=== PATIENT | female | born 1965 | race Caucasian/White ===

== ENCOUNTER 2020-02-27 13:07 | Outpatient (CLI) | payer OTHER, SELFPAY ==
--- NOTE | ~2020-02-27 | XR_ITS ---
EXAMINATION: XR lumbar spine min 4V EXAM DATE: 02/27/2020 13:43 INDICATION: M19.90 - Unspecified osteoarthritis, unspecified site TECHNIQUE: Lumber spine frontal, lateral, bilateral oblique projections. Coned down frontal and lat eral L5-S1 lumbar projections for interpretation. There is no prior study for comparison. FINDINGS: There is no spondylolysis. Mild lumbar facet arthropathy and diffuse disc disease. Mild abd ominal aortic arterial sclerosis. Sacrum, sacroiliac joints, sacral arcuate lines are intact. Paraspi nal soft tissue is unremarkable. IMPRESSION: 1. Mild lumbar spondylosis. Reviewed, dictated and finalized at location B. ANALYST IMPRESSION: 1. Mild lumbar spondylosis.
--- NOTE | ~2020-02-27 | XR_ITS ---
EXAMINATION: XR hip BI 2V w AP pelvis EXAM DATE: 02/27/2020 13:43 INDICATION: M19.90 - Unspecified osteoarthritis, unspecified site. TECHNIQUE: Each hip imaged independently (separate right and also left hip) 'frog leg' and frontal p rojections for interpretation. Frontal projection pelvis. There is no prior study for comparison. FINDINGS: No radiographic evidence of hip avascular necrosis. There is mild symmetric bilateral hip primary osteoarthritis. There are no acute fractures or dislocations identified. There is no subcuta neous gas. The soft tissue is unremarkable. There are no radiopaque foreign bodies. IMPRESSION: Mild symmetric bilateral hip osteoarthritis. Reviewed, dictated and finalized at location B. ER SHOP MECHANIC
--- NOTE | ~2020-02-27 | XR_ITS ---
XR hand BI arthritis min 3V 02/27/2020 13:43 Indication: Osteoarthritis. Procedure: 4 views of each hand Comparison: No prior studies for comparison. Findings: No significant joint space narrowing. No erosive changes. No fracture or traumatic malalign ment. Carpal bones are intact bilaterally. No focal soft tissue abnormality. No foreign bodies. Impression: 1: No significant bone or joint abnormality. Reviewed, dictated and finalized at location A. 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
[2020-02-27 14:40] LABS: Basophils Percent Auto 0.4 % (0.2-1.2); Eosinophils Absolute Auto 0.2 K/mm3 (0-0.3); Eosinophils Percent Auto 2.1 % (0-4.4); Hematocrit 44.4 % (37.0-47.0); Hemoglobin 14.9 g/dL (12.0-15.0); Immature Granulocyte Absolute 0.03 K/mm3 (0.00-0.031); Immature Granulocyte Percent A 0.3 % (0-0.5); Lymphocytes Absolute Auto 4.03 K/mm3 (0.9-3.2); Lymphocytes Percent Auto 42.6 % (18.3-44.2); Mean Corpuscular HGB Conc 33.6 g/dl (32-36); Mean Corpuscular Hemoglobin 29.6 pg (26-34); Mean Corpuscular Volume 88.3 fl (80-100); Mean Platelet Volume 9.8 fl (7.4-10.4); Monocytes Absolute Auto 0.5 K/mm3 (0.1-0.6); Monocytes Percent Auto 4.8 % (2.6-8.5); Neutrophils Absolute Auto 4.7 K/mm3 (1.3-6.7); Neutrophils Percent Auto 49.8 % (45.5-73.1); Platelet Count Result 309 k/mm3 (150-375); Red Blood Count 5.03 M/mm3 (4.2-5.4); Red Cell Distribution Width 11.9 % (11.5-14.5); White Blood Count 9.5 K/mm3 (4.5-10.0)
[2020-02-27 15:03] LABS: Alanine Aminotransferase 22 U/L (4-35); Albumin Level 4.5 g/dL (3.5-5.1); Alkaline Phosphatase 75 U/L (38-126); Anion Gap 9 mmol/L (8-16); Aspartate Amino Transferase 32 U/L (14-36); Bilirubin,Total 0.5 mg/dL (0.2-1.3); Blood Urea Nitrogen 10 mg/dL (7-17); CRP 1.3 mg/dL (<1.0); Calcium 10.3 mg/dL (8.4-10.2); Carbon Dioxide 29 mmol/L (22-30); Chloride 102 mmol/L (98-107); Estimated Glomerular Filt Rate > 60; Glucose 94 mg/dL (65-105); Potassium 3.4 mmol/L (3.4-5.0); Sodium 140 mmol/L (137-145)
[2020-02-27 15:12] LABS: Erythrocyte Sedimentation Rate 23 mm/hr (0-20)
[2020-02-27 15:29] LABS: Atypical Lymphocytes Present; Platelet Estimate Adequate (Adequate)
[2020-02-27 17:17] LABS: Vitamin D 25 Hydroxy 32.8 ng/mL
[2020-02-29 13:29] LABS: Thyroid Stimulating Immunoglob <89 % baseline (<140)
[2020-02-29 21:31] LABS: Anti Cyclic Citrullinated Pept <16 Units (<20)
[2020-03-02 04:55] LABS: Thyroid Peroxidase Antibodies <1 IU/mL (<9)
[2020-03-05 11:24] LABS: ANCA Screen Negative
[2020-03-05 11:25] LABS: Myeloperoxidase Ab <1.0
[2020-03-05 11:26] LABS: Proteinase-3 Ab <1.0
[2020-03-06 19:18] LABS: Angiotensin Converting Enzyme 24 U/L (9-67)
== END 2020-02-27 13:08 | disposition home or self-care (01) ==
PROVIDERS: PCP Family Medicine; Visit Provider Internal Medicine
DX: M19.90 Unspecified osteoarthritis, unspecified site (principal); E55.9 Vitamin D deficiency, unspecified; R79.82 Elevated C-reactive protein (CRP); M47.896 Other spondylosis, lumbar region; M16.0 Bilateral primary osteoarthritis of hip
CPT/HCPCS: 36415; 72110; 73130; 73521; 80053; 82164; 82306; 84445; 85025; 85652; 86021; 86140; 86200; 86376; 86671

== ENCOUNTER 2020-06-24 09:20 | Outpatient (CLI) | payer OTHER, SELFPAY ==
--- NOTE | ~2020-06-24 | XR_ITS ---
XR shoulder RT min 2V DATE: 06/24/2020 09:38 INDICATION: Right shoulder pain TECHNIQUE: 4 views COMPARISON: None FINDINGS: No fracture or dislocation. Normal alignment at the acromioclavicular and glenohumeral join ts. No periosteal reaction or bone destruction. No abnormal soft tissue calcification. IMPRESSION: Negative right shoulder Reviewed, dictated and finalized at location A. IMPRESSION: Negative right shoulder
--- NOTE | ~2020-06-24 | XR_ITS ---
XR shoulder LT min 2V DATE: 06/24/2020 09:38 INDICATION: Left shoulder pain TECHNIQUE: 4 views COMPARISON: 08/18/2017 left shoulder FINDINGS: No fracture or dislocation, periosteal reaction or bone destruction or abnormal left should er calcification. Normal alignment at the acromioclavicular and glenohumeral joints. IMPRESSION: No significant abnormality Reviewed, dictated and finalized at location A. IMPRESSION: No significant abnormality
[2020-06-24 10:37] LABS: Erythrocyte Sedimentation Rate 24 mm/hr (0-20)
[2020-06-24 10:49] LABS: Alanine Aminotransferase 24 U/L (4-35); Albumin Level 4.5 g/dL (3.5-5.1); Alkaline Phosphatase 64 U/L (38-126); Anion Gap 6 mmol/L (8-16); Aspartate Amino Transferase 32 U/L (14-36); Bilirubin,Total 0.3 mg/dL (0.2-1.3); Blood Urea Nitrogen 12 mg/dL (7-17); CRP 1.3 mg/dL (<1.0); Calcium 10.5 mg/dL (8.4-10.2); Carbon Dioxide 30 mmol/L (22-30); Chloride 102 mmol/L (98-107); Estimated Glomerular Filt Rate > 60; Glucose 116 mg/dL (65-105); Potassium 3.5 mmol/L (3.4-5.0); Sodium 138 mmol/L (137-145); Uric Acid 6.7 mg/dL (2.5-7.5)
[2020-06-24 10:52] LABS: Parathyroid Intact 12.5 pg/mL (7.5-53.5)
== END 2020-06-24 09:21 | disposition home or self-care (01) ==
LOC: ANHIMG 09:22
PROVIDERS: PCP Family Medicine; Visit Provider Internal Medicine
DX: E55.9 Vitamin D deficiency, unspecified (principal); R79.82 Elevated C-reactive protein (CRP); M19.011 Primary osteoarthritis, right shoulder; M19.012 Primary osteoarthritis, left shoulder
CPT/HCPCS: 36415; 73030; 80053; 83970; 84550; 85652; 86140

== ENCOUNTER 2020-07-09 08:38 | Outpatient (CLI) | payer OTHER, SELFPAY ==
--- NOTE | ~2020-07-09 | MR_ITS ---
EXAMINATION: MR lumbar spine wo con DATE: 07/09/2020 09:16 INDICATION: Lumbar spondylosis. Low back pain and bilateral leg pain. TECHNIQUE: Magnetic resonance imaging (MRI) of the lumbar spine was performed without intravenous con trast. Sequences included sagittal T2-weighted FSE, sagittal T2-weighted FS FSE, sagittal T1-weighted FSE, and axial T2-weighted FSE. COMPARISON: None FINDINGS: Alignment is normal. Vertebral body heights are normal. Normal marrow signal. Disc heights are mara l. The conus medullaris terminates at L1-L2. There is normal signal in the caudal spinal cord. Parave rtebral soft tissues are unremarkable. The following disc levels are specifically discussed: T12-L1: The disc does not extend beyond the endplate margin. There is mild bilateral facet joint oste oarthritis. There is no neural foraminal stenosis. There is no central canal stenosis. L1-L2: The disc does not extend beyond the endplate margin. There is mild bilateral facet joint osteo arthritis. There is no neural foraminal stenosis. There is no central canal stenosis. L2-L3: The disc does not extend beyond the endplate margin. There is mild bilateral facet joint osteo arthritis. There is no neural foraminal stenosis. There is no central canal stenosis. L3-L4: The disc does not extend beyond the endplate margin. There is mild bilateral facet joint osteo arthritis. There is mild bilateral neural foraminal stenosis. There is no central canal stenosis. L4-L5: The disc does not extend beyond the endplate margin. There is moderate bilateral facet joint o steoarthritis. There is mild bilateral neural foraminal stenosis. There is no central canal stenosis. L5-S1: The disc does not extend beyond the endplate margin. There is moderate bilateral facet joint o steoarthritis. There is mild bilateral neural foraminal stenosis. There is no central canal stenosis. IMPRESSION: 1. Mild to moderate lower lumbar predominant facet osteoarthritis. Reviewed, dictated and finalized at location A.
== END 2020-07-09 08:39 ==
LOC: MICIMG 08:39
PROVIDERS: PCP Family Medicine; Visit Provider Internal Medicine
DX: M47.817 Spondylosis without myelopathy or radiculopathy, lumbosacral region (principal); M48.07 Spinal stenosis, lumbosacral region; M47.815 Spondylosis without myelopathy or radiculopathy, thoracolumbar region; M48.05 Spinal stenosis, thoracolumbar region
CPT/HCPCS: 72148

== ENCOUNTER 2020-09-26 15:32 | Emergency (ER) | payer OTHER, SELFPAY ==
--- NOTE | ~2020-09-26 | CT_ITS ---
EXAMINATION: CT abdomen pelvis wo con DATE: 09/26/2020 16:53 INDICATION: Generalized abdominal pain. Recent iliac stents. TECHNIQUE: Computed tomography (CT) of the abdomen and pelvis was performed without intravenous contr ast. Automated exposure control and iterative reconstruction technique were employed. Exam dose: 106 2.22 mGy-cm total exam DLP. COMPARISON: None. FINDINGS: Left lower lobe calcified pulmonary granuloma. No consolidation at the lung bases. Normal heart size. No pericardial or pleural effusion. The gallbladder is contracted. No hepatic, splenic, pancreatic, and adrenal or right renal space-occu pying mass lesion is evident. There is an indeterminate exophytic approximately 2.3 cm mass of the upper pole of the left kidney wi th attenuation of approximately 16 Hounsfield units, possibly a cyst. Further CT evaluation with IV c ontrast material or MR kidney examination is suggested. No urinary tract calculus or hydroureteronephrosis. The uterus, adnexal areas and urinary bladder are unremarkable. There is atherosclerotic calcification of the abdominal aorta. Bilateral iliac artery stents. No abdo lisa aortic aneurysm. No intraperitoneal or retroperitoneal or pelvic mass lesion or adenopathy or ascites. Normal appendix. No bowel obstruction, bowel wall thickening, pneumatosis or intraperitoneal free air . Small fat-containing umbilical hernia. Included skeletal structures are unremarkable. IMPRESSION: 2.3 cm hypoattenuating lesion in the upper pole left kidney; cyst versus hypodense solid mass lesion. Consider further evaluation with CT examination with IV contrast material or MRI examin ation of the kidneys. Bilateral iliac artery stents Reviewed, dictated and finalized at Location A. Reviewed, dictated and finalized at location A. IMPRESSION: 2.3 cm hypoattenuating lesion in the upper pole left kidney; cyst versus hypodense solid mass lesion. Consider further evaluation with CT examina tion with IV contrast material or MRI examination of the kidneys. Bilateral iliac artery stents
[2020-09-26 15:46] VITALS: BP 124/94; PULSE 94; RESP 20; TEMP 37; O2SAT 96
[2020-09-26 16:02] LABS: Basophils Percent Auto 0.3 % (0.2-1.2); Eosinophils Absolute Auto 0.2 K/mm3 (0-0.3); Eosinophils Percent Auto 1.8 % (0-4.4); Hematocrit 43.4 % (37.0-47.0); Hemoglobin 14.6 g/dL (12.0-15.0); Immature Granulocyte Absolute 0.04 K/mm3 (0.00-0.031); Immature Granulocyte Percent A 0.4 % (0-0.5); Lymphocytes Absolute Auto 4.81 K/mm3 (0.9-3.2); Lymphocytes Percent Auto 43.7 % (18.3-44.2); Mean Corpuscular HGB Conc 33.6 g/dl (32-36); Mean Corpuscular Hemoglobin 29.9 pg (26-34); Mean Corpuscular Volume 88.8 fl (80-100); Mean Platelet Volume 9.5 fl (7.4-10.4); Monocytes Absolute Auto 0.6 K/mm3 (0.1-0.6); Monocytes Percent Auto 5.4 % (2.6-8.5); Neutrophils Absolute Auto 5.3 K/mm3 (1.3-6.7); Neutrophils Percent Auto 48.4 % (45.5-73.1); Platelet Count Result 325 k/mm3 (150-375); Red Blood Count 4.89 M/mm3 (4.2-5.4)
[2020-09-26 16:14] LABS: Alanine Aminotransferase 23 U/L (4-35); Albumin Level 4.4 g/dL (3.5-5.1); Alkaline Phosphatase 71 U/L (38-126); Anion Gap 11 mmol/L (8-16); Aspartate Amino Transferase 35 U/L (14-36); Bilirubin,Total 0.4 mg/dL (0.2-1.3); Blood Urea Nitrogen 10 mg/dL (7-17); Calcium 9.6 mg/dL (8.4-10.2); Carbon Dioxide 26 mmol/L (22-30); Chloride 103 mmol/L (98-107); Estimated CRCL calculation 79 ml/min; Estimated Glomerular Filt Rate > 60; Glucose 120 mg/dL (65-110); Lipase 207 U/L (23-300); Potassium 3.4 mmol/L (3.4-5.0); Sodium 140 mmol/L (137-145)
[2020-09-26 16:29] LABS: Add Urine Microscopic? NO; Appearance Urine Clear (Clear); Bilirubin Urine Negative (Negative); Blood Urine Negative (Negative); Color Urine Yellow (Yellow); Glucose Urine UA Negative (Negative); Ketones Urine Negative (Negative); Leukocyte Esterase Ur Negative LEU/UL (Negative); Nitrate Urine Negative (Negative); Protein Urine Negative (Negative); Specific Grav Ur 1.009 (1.001-1.035); Urobilinogen Urine Negative mg/dL (<2.0)
--- NOTE | 2020-09-26 16:34 | ED.ABDPAIN ---
HPI - Abdominal Pain General Chief Complaint: Abdominal Pain Stated Complaint: abd pain Time Seen by Provider: 09/26/20 15:41 Source: patient Mode of arrival: ambulatory Limitations: no limitations History of Present Illness HPI narrative: 55-year-old female Pains of diffuse abdominal discomfort which is been getting worse for several days No vomiting diarrhea or constipation No urinary symptoms No fever Cannot say anything which particularly makes it better or worse About a month ago in [facility] she had bilateral arterial stents placed She was placed on Plavix after that and also was taking turmeric as a supplement She discussed her symptoms with somebody in the vascular office and was advised to discontinue the turmeric No NSAIDs, she does not drink, she does smoke half pack a day Related Data Home Medications Medication Instructions Recorded Confirmed cetirizine 10 mg tablet 10 mg PO DAILY 01/10/20 01/16/20 hydrochlorothiazide 25 mg tablet 25 mg PO DAILY 01/10/20 01/16/20 cyanocobalamin (vitamin B-12) 1,000 mcg PO DAILY 01/16/20 01/16/20 1,000 mcg capsule clopidogrel 09/26/20 Allergies Allergy/AdvReac Type Severity Reaction Status Date / Time No Known Allergies Allergy Verified 09/26/20 15:50 Review of Systems Review of Systems: All systems reviewed & are unremarkable except as noted in HPI and below Constitutional: Constitutional: Reports no additional constitutional complaints, Denies chills, Denies fever(s) and Denies headache(s) Eyes: Eyes: Reports no additional eye complaints and Denies change in vision ENT: Denies headache(s) and Denies sore throat Cardiovascular: Cardiovascular: Denies chest pain and Denies dyspnea Respiratory: Respiratory: Denies cough and Denies dyspnea Gastrointestinal: Gastrointestinal: Reports abdominal pain, Denies bloating, Denies diarrhea and Denies vomiting Genitourinary: Genitourinary: Denies urinary frequency and Denies dysuria Musculoskeletal: Musculoskeletal: Denies deformity, Denies arthralgias, Denies joint swelling and Denies numbness Integumentary/Breasts: Skin/Breast: Denies rash and Denies wounds Neurologic: Denies headache(s), Denies focal weakness and Denies numbness Psychiatric: Psychiatric: Reports no additional psychiatric complaints Endocrine: Endocrine: Reports no additional endocrine complaints Hematologic/Lymphatic: Hematologic/Lymphatic: Reports no additional hematologic/lymphatic complaints Allergic/Immunologic: Allergic/Immunologic: Reports no additional allergic/immunologic complaints [facility] Past Medical History Medical History (Updated 09/26/20 @ 17:47 by Lexx Rodríguez MD) Claudication of calf muscles CRP elevated Degenerative joint disease (DJD) of lumbar spine Inflammatory arthritis Left leg claudication Vitamin D deficiency Surgical History Surgical History History of carpal tunnel surgery Family History Family History Mother Heart disease Father Heart disease Cancer Sibling Rheumatoid arthritis Sibling Heart disease Social History Social History Smoking packs per day: 0.75 Smoking cigarettes per day: 15.0 Years smoked: 25 Smoking pack-years: 18.75 Smoking status: Current every day smoker Tobacco type: cigarettes Alcohol intake: never Substance use: never Substance use type: does not use Gender identity (if verbalized by the patient): Female Exam Const: General: cooperative and no acute distress Orientation/consciousness: patient oriented x3 (alert) HENMT: Head: normal to inspection, normocephalic and atraumatic Ears: external ears normal General nose exam: no epistaxis Eyes: Conjunctivae: conjunctivae normal EOM: EOMs intact bilaterally Neck: Neck: normal visual inspection, supple and no JVD
[2020-09-26 17:23] VITALS: BP 128/66; PULSE 78; RESP 18; O2SAT 99
[2020-09-26 18:02] VITALS: BP 130/75; PULSE 78; RESP 18; O2SAT 99
== END 2020-09-26 18:05 | disposition home or self-care (01) ==
PROVIDERS: Emergency Provider Emergency Medicine; PCP Family Medicine
DX: R10.9 Unspecified abdominal pain (principal); N28.1 Cyst of kidney, acquired; Z95.5 Presence of coronary angioplasty implant and graft; M19.90 Unspecified osteoarthritis, unspecified site; E55.9 Vitamin D deficiency, unspecified; M47.816 Spondylosis without myelopathy or radiculopathy, lumbar region; Z79.02 Long term (current) use of antithrombotics/antiplatelets; F17.210 Nicotine dependence, cigarettes, uncomplicated
CPT/HCPCS: 36415; 74176; 80053; 81003; 83690; 85025; 99284

== ENCOUNTER 2020-10-02 12:54 | Outpatient (CLI) | payer OTHER, SELFPAY ==
--- NOTE | ~2020-10-02 | MR_ITS ---
EXAMINATION: MR renal wo/w con DATE: 10/02/2020 13:51 INDICATION: Abnormal left renal lesion on prior CT. Generalized abdominal pain. TECHNIQUE: Magnetic resonance imaging (MRI) of the abdomen was performed without and with 18 mL Multi chip intravenous contrast. Sequences included coronal T2-weighted SS-FSE, coronal and axial FS 2D-F IESTA, axial STIR FSE, axial T2-weighted SS-FSE, axial T2-weighted FS SS-FSE, axial diffusion-weighte d SE, axial dual-echo T1-weighted FSPGR, and axial and coronal T1-weighted LAVA. Postcontrast axial T 1-weighted LAVA images were obtained in a time course. Postcontrast coronal T1-weighted LAVA images w ere obtained. COMPARISON: CT dated 09/26/2020 FINDINGS: Heart size is normal. No pericardial or pleural effusion. Liver, gallbladder, spleen, pancreas, right kidney and bilateral adrenal glands are normal. No intra or extrahepatic biliary ductal dilation. 2. 5 cm likely hemorrhagic cyst at the upper pole of the left kidney with T1 hyperintense, T2 hypointens e posteriorly layering hematocrit level. The bowels including the appendix are normal. Bladder and ut erus are unremarkable. No free intraperitoneal fluid. No pathologically enlarged abdominal or pelvic lymphadenopathy. Normal bone marrow signal throughout. IMPRESSION: 1. Left renal lesion of concern corresponds to a 2.5 cm hemorrhagic cyst with dependently layering he matocrit level. 2. No acute intra-abdominal/pelvic process. Reviewed, dictated and finalized at location A. IMPRESSION: 1. Left renal lesion of concern corresponds to a 2.5 cm hemorrhagic cyst with d ependently layering hematocrit level. 2. No acute intra-abdominal/pelvic process.
[2020-10-02 13:25] LABS: Estimated Glomerular Filt Rate > 60
== END 2020-10-02 12:55 ==
PROVIDERS: PCP Family Medicine; Visit Provider Nurse Practitioner Family
DX: R93.422 Abnormal radiologic findings on diagnostic imaging of left kidney (principal)
CPT/HCPCS: 74183; A9577

== ENCOUNTER 2021-01-08 08:14 | Outpatient (CLI) | payer OTHER, SELFPAY ==
--- NOTE | ~2021-01-08 | NM_ITS ---
EXAMINATION: NM hepatobiliary wo pharm DATE: 01/08/2021 11:05 INDICATION: Abdominal pain. Gastritis. Abnormal CT . COMPARISON: None. TECHNIQUE: 4.6 mCi Tc-99m mebrofenin (Choletec) was administered intravenously. Scintigraphic images of the abdomen were obtained for one hour. At the 1 hour time point, the patient drank 8 oz Ensure, and imaging was continued for 60 minutes. Gallbladder ejection fraction was calculated by the technol ogist. FINDINGS: There is normal clearance of radiotracer from the blood pool. There is homogeneous tracer u ptake by the liver. Activity progresses to the bowel and gallbladder. The gallbladder ejection fract ion (GBEF) is 78%. Note that with this technique, normal GBEF >= 33%. IMPRESSION: 1. Normal hepatobiliary scan Reviewed, dictated and finalized at location A.
== END 2021-01-08 08:15 | disposition home or self-care (01) ==
LOC: ANHIMG 08:18
PROVIDERS: PCP Family Medicine; Visit Provider Internal Medicine Gastroenterology
DX: R10.84 Generalized abdominal pain (principal); K29.30 Chronic superficial gastritis without bleeding
CPT/HCPCS: 78226; A9537

== ENCOUNTER 2022-05-25 08:51 | Outpatient (CLI) | payer OTHER, SELFPAY ==
--- NOTE | ~2022-05-25 | CT_ITS ---
EXAMINATION: CTA abd aorta runoff DATE: 05/25/2022 09:47 INDICATION: Peripheral vascular disease TECHNIQUE: Computed tomographic angiography (CTA) of the abdomen, pelvis, and both lower extremities was performed with 150 mL Omnipaque-350 intravenous contrast. The dose-length product (DLP) was 1727. 73 mGy-cm. Maximum intensity projection 3D-reconstructions of the arteries were created by the techno logist on a separate workstation. Automated exposure control and iterative reconstruction technique w ere employed. COMPARISON: 09/26/2020 FINDINGS: ABDOMINAL AORTA AND ITS BRANCHES: No aneurysm or dissection of the abdominal aorta. There is calcified atherosclerosis of the abdominal aorta with mild stenosis of the distal abdominal aorta. The celiac axis, superior mesenteric artery, and inferior mesenteric artery are normal at their origins. There are two left and one right renal a rteries. Endovascular stents are present in the proximal common iliac arteries. PELVIC VASCULATURE: The distal common iliac arteries and external iliac arteries are unremarkable. There is calcified ath erosclerosis with areas of stenosis in the left internal iliac artery. RIGHT LOWER EXTREMITY VASCULATURE: Unremarkable with three-vessel runoff at the ankle. LEFT LOWER EXTREMITY VASCULATURE: Unremarkable with three-vessel runoff at the ankle. ADDITIONAL FINDINGS: A calcified nodule of the left lower lobe is consistent with old granulomatous disease. The liver is diffusely low in attenuation when compared with the spleen, consistent with hepatic steatosis. There is a hemangioma of the right hepatic lobe. Punctate calcifications in an otherwise normal spleen like ly represent healed granulomatous disease. The pancreas, gallbladder, and adrenal glands are normal. Cysts of the kidneys measure up to 2.5 cm on the right. No pathologically enlarged abdominal or pelvi c lymph nodes are identified. No free intraperitoneal gas or evidence of bowel obstruction. The appen brinda is normal. There is formed stool in the nondistended distal small bowel, suggestive of slow trans it. IMPRESSION: 1. Calcified atherosclerosis with mild stenosis of the distal abdominal aorta and areas of stenosis o f the left internal iliac artery, otherwise unremarkable examination. Reviewed, dictated and finalized at location L. IMPRESSION: 1. Calcified atherosclerosis with mild stenosis of the distal abdominal aorta a nd areas of stenosis of the left internal iliac artery, otherwise unremarkable examination.
[2022-05-25 09:27] LABS: Estimated Glomerular Filt Rate > 60
== END 2022-05-25 08:52 | disposition home or self-care (01) ==
PROVIDERS: PCP Family Medicine; Visit Provider Surgery Vascular Surgery
DX: I73.9 Peripheral vascular disease, unspecified (principal); I77.1 Stricture of artery
CPT/HCPCS: 75635; Q9967

== ENCOUNTER → 2022-07-15 11:01 | Outpatient (CLI) | payer OTHER, SELFPAY ==
--- NOTE | ~2022-07-15 | MR_ITS ---
EXAMINATION: MR cervical spine wo con DATE: 07/15/2022 11:41 INDICATION: Cervical radiculopathy TECHNIQUE: Magnetic resonance imaging (MRI) of the cervical spine was performed without intravenous c ontrast. Sequences included sagittal T2-weighted FSE, sagittal T2-weighted FS FSE, sagittal T1-weight ed FSE, sagittal fluid sensitive FSE STIR, axial MERGE and axial T2-weighted FSE. COMPARISON: Cervical spine radiographs dated 07/13/2022 FINDINGS: Bone alignment is normal. Vertebral body heights are normal. Mild disc height loss at C6-C7 with ass ociated mild fibrovascular degenerative endplate changes at both sides of the disc space. Marrow sign al is otherwise normal. Cord signal intensity is normal. Cervical soft tissues are unremarkable. The following disc levels are specifically discussed: C2-C3: The disc does not extend beyond the endplate margin. There is no uncovertebral joint osteoarth ritis. There is mild bilateral facet joint osteoarthritis. There is no neural foraminal stenosis. The re is no central canal stenosis. C3-C4: Disc is mildly bulging. There is mild left and moderate right uncovertebral joint osteoarthrit is. There is moderate to severe left and severe right facet joint osteoarthritis. There is mild left and mild to moderate right neural foraminal stenosis. There is mild central canal stenosis. C4-C5: The disc does not extend beyond the endplate margin. There is mild bilateral uncovertebral ann-marie nt osteoarthritis. There is moderate to severe bilateral facet joint osteoarthritis. There is mild le ft neural foraminal stenosis. There is no central canal stenosis. C5-C6: Disc is bulging. There is mild bilateral uncovertebral joint osteoarthritis. There is mild lef t and moderate right facet joint osteoarthritis. There is mild right neural foraminal stenosis. There is mild central canal stenosis. C6-C7: Disc is bulging. There is moderate right and mild left uncovertebral joint osteoarthritis. The re is mild bilateral facet joint osteoarthritis. There is mild right neural foraminal stenosis. There is mild central canal stenosis. C7-T1: Disc is minimally bulging. There is mild bilateral uncovertebral joint osteoarthritis. There i s mild to moderate bilateral facet joint osteoarthritis. There is no neural foraminal stenosis. There is no central canal stenosis. IMPRESSION: 1. Mild cervical spondylosis. Reviewed, dictated and finalized at location A.
== END ==
PROVIDERS: PCP Family Medicine; Visit Provider Orthopaedic Surgery
DX: M47.22 Other spondylosis with radiculopathy, cervical region (principal)
CPT/HCPCS: 72141

== ENCOUNTER → 2023-01-06 15:08 | Outpatient (CLI) | payer OTHER, SELFPAY ==
--- NOTE | ~2023-01-06 | MR_ITS ---
EXAMINATION: MR lumbar spine wo con DATE: 01/06/2023 15:50 INDICATION: Lumbar spondylosis with chronic worsening low back pain radiating down both legs TECHNIQUE: Magnetic resonance imaging (MRI) of the lumbar spine was performed without intravenous con trast. Sequences included sagittal T2-weighted FSE, sagittal T2-weighted FS FSE, sagittal T1-weighted FSE, and axial T2-weighted FSE. COMPARISON: None FINDINGS: Alignment is normal. Vertebral body heights are normal. Small Schmorl's node along the inferior endpl ate of L1. Normal marrow signal. Disc heights are normal. Mild disc desiccation without significant d isc height loss at L4-L5. The conus medullaris terminates at L1-L2. There is normal signal in the cau marilou spinal cord. Peroneal cyst on the left at T11-T12. Paravertebral soft tissues are unremarkable. T he following disc levels are specifically discussed: T12-L1: Minimal bilateral paracentral disc protrusions. There is mild bilateral facet joint osteoarth ritis. There is no neural foraminal stenosis. There is no central canal stenosis. L1-L2: The disc does not extend beyond the endplate margin. There is mild bilateral facet joint osteo arthritis. There is no neural foraminal stenosis. There is no central canal stenosis. L2-L3: Mild left foraminal zone disc protrusion. There is mild bilateral facet joint osteoarthritis. There is mild left neural foraminal stenosis. There is no central canal stenosis. L3-L4: Bilateral foraminal zone disc protrusions, mild on the left and minimal on the right There is mild bilateral facet joint osteoarthritis. There is mild bilateral neural foraminal stenosis. There i s no central canal stenosis. L4-L5: Disc is mildly bulging with left foraminal zone annular fissure. There is moderate bilateral f acet joint osteoarthritis. There is mild bilateral neural foraminal stenosis. There is no central can al stenosis. L5-S1: Disc is minimally bulging. There is moderate bilateral facet joint osteoarthritis. There is mi ld left and mild to moderate right neural foraminal stenosis. There is no central canal stenosis. IMPRESSION: 1. Minimal progression of minimal lumbar spondylosis with mild to moderate lower lumbar predominant f acet osteoarthritis. Reviewed, dictated and finalized at location A. IMPRESSION: 1. Minimal progression of minimal lumbar spondylosis with mild to moderate lowe r lumbar predominant facet osteoarthritis.
== END ==
PROVIDERS: PCP Family Medicine; Visit Provider Family Medicine
DX: M43.06 Spondylolysis, lumbar region (principal); M46.96 Unspecified inflammatory spondylopathy, lumbar region; M47.896 Other spondylosis, lumbar region
CPT/HCPCS: 72148

== ENCOUNTER 2023-12-27 13:05 | Outpatient (CLI) | payer OTHER, SELFPAY ==
--- NOTE | ~2023-12-27 | XR_ITS ---
3 VIEWS LUMBAR SPINE Ordering provider: Alexa Britton MD History: . LUMBAR SPONDYLOSIS . Comparison: None. FINDINGS: VERTEBRAL BODIES: No visible fracture or subluxation. DISK SPACES: Normal. SOFT TISSUES: Normal. Vascular calcifications. IMPRESSION: No acute osseous abnormality lumbar spine. Reviewed, dictated and finalized at location A.
== END 2023-12-27 13:06 | disposition home or self-care (01) ==
PROVIDERS: PCP Family Medicine; Visit Provider Neurological Surgery
DX: M47.816 Spondylosis without myelopathy or radiculopathy, lumbar region (principal)
CPT/HCPCS: 72110

== ENCOUNTER 2024-12-13 12:00 | Outpatient (CLI) | payer OTHER, SELFPAY ==
[2024-12-13 19:20] LABS: Alanine Aminotransferase 23 U/L (6-35); Albumin Level 4.2 g/dL (3.5-5.1); Alkaline Phosphatase 87 U/L (38-126); Anion Gap 7 mmol/L (4-12); Aspartate Amino Transferase 61 U/L (14-36); Bilirubin,Total 0.9 mg/dL (0.2-1.3); Blood Urea Nitrogen 9 mg/dL (7-17); Calcium 9.4 mg/dL (8.4-10.2); Carbon Dioxide 30 mmol/L (22-30); Chloride 101 mmol/L (98-107); Estimated Glomerular Filt Rate > 60; Glucose 151 mg/dL (65-110); Potassium 3.9 mmol/L (3.4-5.0); Sodium 138 mmol/L (137-145); Total Protein 7.8 g/dL (6.3-8.2)
[2024-12-13 19:23] LABS: Hemoglobin A1C 6.1 % (<5.7)
== END 2024-12-13 12:01 | disposition home or self-care (01) ==
LOC: ANHASCIMG 12:00 → ANHBWCLAB 12:01
PROVIDERS: PCP Nurse Practitioner Adult Health; Visit Provider Nurse Practitioner Adult Health
DX: R73.9 Hyperglycemia, unspecified (principal)
CPT/HCPCS: 36415; 80053; 83036

== ENCOUNTER 2025-01-12 15:03 | Outpatient (CLI) | payer OTHER, SELFPAY ==
--- OUTSIDE RECORDS SUMMARY | 2008-06-20 02:30 | XMS_ITS | Continuity of Care Document ---
Author Organization [facility] Address [address] [place] [address] utive [facility] [address] [place] [address] Phone Care Team Providers Care Superintendent Maintenance Name Role Phone Jorgensen OD, Lexx Unavailable Unavailable Procedures Procedure Date Eye Exam, New Patient Refraction Advance Directives Directive Yes / No Effective Date File Name No Information Encounters Encounter Description Practice Location Reason(s) For Visit Diagnoses Date Provider Providers Copied on Encounter [facility], [address] [place] [address] [address], [place], [place], [id number], [place] tel:[phone] [facility] No Information [phone] Jorgensen OD [facility]. [address] , [address], [place], [address], [place]. tel:[phone] Family History Family Member Type Diagnosis Age At Onset No Information Payers Payer name Insurance type Covered republican ID Authoriza tion(s) [employer] [place] [id number] Social History Type Description Quantity Date Captured Comments Sex Female Smoking Status No Information Chief Complaint And Reason For Visit No Information Reason For Referral Reason For Referral No Information History Of Present Illness Encounter Date Complaint History Of Prese nt Illness No Information Functional Status Date Functional Assessmen t No Information Instructions Date Instruction Additional Infor mation No Information Assessments Type Assessment Date No Information Patient Care Teams Name Effective Dates (start - stop) Status Members No Information
--- OUTSIDE RECORDS SUMMARY | 2019-05-12 05:21 | XMS_ITS | Continuity of Care Document ---
Author Organization [facility] Address [address] [facility] [address] [place] [address] Phone Care Team Providers Care History Teacher Name Role Phone Aquiles Delgadillo MD Unavailable Unavailable Allergies, Adverse Reactions, Alerts Substance Reaction Status Criticality No Known Allergies Active No Inform ation Medications Medication Instructions Dosage Effective Dates (start - stop) Status Comments Mobic 15 mg tablet take 1 tablet by ora l route every day with food 15 MG - Active lisinopril 10 mg tablet take 1 tablet by oral route every day 10 MG - Active Procedures Procedure Date OFFICE/OUTPATIENT VISIT EST OFFICE/OUTPATIENT VISIT NEW Advance Directives Directive Yes / No Effective Date File Name No Information Encounters Encounter Description Practice Location Reason(s) For Visit Diagnoses Date Provider Providers Copied on Encounter [facility] , [address] [facility] [address], [place], [address], [place] tel:[phone] [facility] No Information May- 0 Elie Kwan. [address], [place], [place], [id number] . tel: [phone] OFFICE/OUTPAT IENT VISIT EST [facility] , [address] [facility] [address], [place], [address], [place] tel:[phone] [facility] Achilles tendinitis of left lower extremity May-0 0 Elie Kwan. [address], [place], [place], [id number] . tel: [phone] OFFICE/OUTPAT IENT VISIT NEW [facility] , [address], [place], [address], [place] tel:[phone] [facility] ankle (chief complaint) Achilles tendinitis of left lower extremityBody mass index (BMI) 32.0-32.9, adultElevated blood-pressure reading, w/o diagnosis of htn 0 Susan Marroquin. [address], [place], [place], [id number] . tel: [phone] Referring Provider: Arpita Nogueira [address] [place] [address] , [place], [address] . tel:[phone] Family History Family Member Type Diagnosis Age At Onset Mother Problem (finding) Alive and well Payers Payer name Insurance type Covered republican ID Authorsegundo calles(s) [facility] All Savers Plan OT [id number] Social History Type Description Quantity Date Captured Comments Alcohol Use Details Unknown Caffeine Use Details Unknown Tobacco Use Status Smoking Status No Information Sex Female Chief Complaint And Reason For Visit No Information Reason For Referral Reason For Referral No Information Plan Of Treatment Date Type Action Status Goal Tobacco cessation counseling completed Referral Ordered: Blood Pressure management: Referral to general practitioner. (related to Elevated blood-pressure reading without diagnosis of hypertension) ordered Referral Ordered: RADEX ANKLE COMPL MINIMUM 3 VIEWS LT ordered History Of Present Illness Encounter Date Complaint History Of Prese nt Illness ankle Functional Status Date Functional Assessmen t No Information Instructions Date Instruction Additional Infor mation activity as tolerated Related to Achilles tendinitis of left lower extremity Giving encouragement to exercise Related to Body mass index (BMI) 32.0-32.9, adult Assessments Type Assessment Date No Information Patient Care Teams Name Effective Dates (start - stop) Status Members No Information
--- NOTE | ~2025-01-12 | CT_ITS ---
Exam: CT abdomen and pelvis without contrast Clinical History: [Epigastric pain. ] Comparison: [ CT abdominal aorta runoff] 05/25/2022 Technique: Multiple axial CT images of the abdomen and pelvis were obtained without IV contrast. Sagittal and coronal reformatted images were obtained. FINDINGS: Lung bases: [There is a 3 mm subpleural nodule in the right middle lobe. ] Liver: [ No mass.] [ No intrahepatic biliary duct dilatation.] Gallbladder: [ No wall thickening or stones.] Common bile duct: [ Normal caliber.] [ No stones.] Spleen: [ Within normal limits.] Pancreas: [ No mass. No pancreatic fluid collection.] Adrenals: [ No masses.] Kidneys: [ No masses. No hydronephrosis.][ ] Lymph nodes: [ No adenopathy in the abdomen or pelvis.] Stomach, small bowel and colon: [ No bowel wall thickening or obstruction.] Peritoneum cavity: [ No mesenteric fat stranding or fluid.] Bladder: [ Unremarkable.] Osseous structures: [ No acute fracture or destructive lesion.] [ Multilevel degenerative change in the visualized spine.] Abdominal aorta: [ No aneurysm.] Aorto bicommon iliac stent. Atherosclerotic disease in the abdominal aorta. Additional findings: [ None of significance.] IMPRESSION: 1. No CT evidence for an acute process in the abdomen or pelvis at this time. Reviewed, dictated and finalized at location Q. INE SET UP OPERATOR PAPER GOODS
--- OUTSIDE RECORDS SUMMARY | 2025-01-12 15:09 | XMS_ITS | Encounter Summary ---
Author Organization [facility] Address [address] [place] [address] Care Team Providers Care Tractor Operator Laser Leveling Name Role Phone Arpita Watters MD Primary Care Provider [phone] Encounter Details Date Type Department Care Team (Late st Contact Info) Description 07/02/2020 [facility] [address] Yolanda Green MA Social History Tobacco Use Types Packs/Day Years Used Date Smoking Tobacco: Every Day Cigarettes 0.8 25 Smokeless Tobacco: Never Alcohol Use Standard Drinks/Week Comments Never 0 (1 standard drink = 0.6 oz pur e alcohol) AUDIT-C Answer Date Recorded Q1: How often do you have a drink containing alc ohol? Never 07/01/2020 Average Number of Drinks Not on file 021 Frequency of Binge Drinking Not on file 06/07 Comments Unknown Sex and Gender Information Value Date Recorded Sex Assigned at Not on file Legal Sex Female 8:11 PM CDT Gender Identity Not on file Sexual Orientation Not on file documented as of this encounter Plan of Treatment Not on file documented as of this encounter Procedures Procedure Name Priority Date/Time Associated Diagnosis Comments COMPREHENSIVE METABOLIC PANEL Routine 06/24/2020 C-REACTIVE PROTEIN Routine 06/24/2020 URIC ACID BLOOD Routine 06/24/2020 CBC (OUTSIDE LAB) Routine 02/27/2020 documented in this encounter Results * URIC ACID BLOOD (06/24/2020) URIC ACID 6.7 06/24/2020 [facility] Final Result * C-REACTIVE PROTEIN (06/24/2020) CRP 1.3 06/24/2020 [facility] Final Result * COMPREHENSIVE METABOLIC PANEL (06/24/2020) SODIUM S/P/B 138 POTASSIUM S/P/B 3.5 CO2 30 CHLORIDE S/P/B 102 GLUCOSE 116 mg/dL CALCIUM S/P/B 10.5 BUN 12 CREATININE S/P/B 0.80 0.5 - 1.0 EGFR NON-AFR. AMER. >60 <=90 ALKALINE PHOSPHATASE S/P/B 64 ALT 24 AST 32 BILIRUBIN TOTAL S/P/B 0.3 ALBUMIN S/P/B 4.5 3.5 - 5.0 TOTAL PROTEIN S/P/B 8.0 06/24/2020 [facility] Final Result * CBC (OUTSIDE LAB) (02/27/2020) WBC 9.5 HGB 14.9 HCT 44.4 PLT 309 02/27/2020 [facility] Abstract LAB-OUTSIDE/ABSTRACTED Final Result documented in this encounter Visit Diagnoses Not on filedocumented in this encounter Care Teams Tractor Operator Laser Leveling Relationship Specialty Start Date End Date Arpita Watters MD [address] [place] [address] [place] [phone] PCP - General FAMILY PRACTICE 08/20/20 documented as of this encounter
--- OUTSIDE RECORDS SUMMARY | 2025-01-12 15:09 | XMS_ITS | Clinical Summary ---
Author Organization [facility] [address] [facility] Address [address] [place] [address] Care Team Providers Care Supervisor Kosher Dietary Service Name Role Phone Arpita Watters MD Primary Care Provider + Allergies No known active allergies Medications hydroCHLOROthiaz philip 25 mg tablet Take 25 mg by mouth daily. Active buPROPion HCL (WELLBUTRIN XL) 150 mg Extended Release 24 hour tablet Take 150 mg by mouth daily in the morning. 03/16/2022 Active gabapentin (NEURONTIN) 300 mg capsule Take 300 mg by mouth 2 times daily. 07/26/2020 Active rivaroxaban (Xarelto) 2.5 mg Tablet Take 1 Tablet (2.5 mg) by mouth 2 times daily. 190 Tablet 3 01/21/2024 Active atorvastatin (LIPITOR) 40 mg tablet TAKE 1 TABLET BY MOUTH EVERY DAY 90 Tablet 3 11/20/2024 Active Active Problems No known active problems Encounters Date Type Department Care Team Description 01/03/2025 External Device Data [facility] ABSTRACTION Provider, Abstract 01/03/2025 External Device Data [facility] ABSTRACTION Provider, Abstract 11/18/2024 Refill [facility] Heart and Vascular Surgery [address] [facility] [address] [address] [facility] [address] [place] [address] Davida Lentz MD from Last 3 Months Family History Medical History Relation Name Comments Heart Disease Father Hypertension Father Diabetes Mother Heart Disease Mother Blood Disorder Sister Relation Name Status Comments Father Mother Sister Social History Tobacco Use Types Packs/Day Years Used Date Smoking Tobacco: Former Cigarettes Q uit: 05/07/2022 Smokeless Tobacco: Never Tobacco Cessation:Counseling Given: Not Answered Alcohol Use Standard Drinks/Week Comments Never 0 (1 standard drink = 0.6 oz pur e alcohol) Comments Unknown Sex and Gender Information Value Date Recorded Sex Assigned at Not on file Legal Sex Female 4:29 AM 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 Gender Identity Not on file Sexual Orientation Not on file Last Filed Vital Signs Vital Sign Reading Time Taken Comments Blood Pressure 136/84 09/26/2024 10:46 AM CDT ri ght arm Pulse 78 09/26/2024 10:46 AM CDT Temperature 36.6 C (97.8 F) 09/26/2024 10:46 AM CDT Respiratory Rate - - Oxygen Saturation 98% 09/26/2024 10:46 AM CDT Inhaled Oxygen Concentration - - Weight 96.6 kg (213 lb) 09/26/2024 10:46 AM CDT Height 162.6 cm (5' 4) 09/26/2024 10:46 AM CDT Body Mass Index 36.56 09/26/2024 10:46 AM CDT Plan of Treatment Upcoming Encounters Date Type Department Care Team (Late st Contact Info) Description 10/05/2025 9:15 AM CDT Appointment [facility] Heart and Vascular Testing [address] [address] [place] [address] [address] 10/05/2025 10:15 AM CDT Appointment [facility] Heart and Vascular Testing [address] [place] [address] [place] [address] [address] 10/05/2025 11:30 AM CDT Office Visit [facility] Heart and Vascular Surgery [address] [facility] [address] [address] [place] [address] [facility] [address] [place] [address] Health Maintenance Due Date Last Done Comments Pre-Diabetes and Diabetes Screening 1965 HEPATITIS B VACCINES (1 of 3 - 19+ 3-dose series) 08/11/1986 HPV/Cotest (21-29) 08/11/1988 HPV/Cotest (30-65) 08/11/1997 FIT-DNA Q 3 years 08/11/2012 FIT/FOBT Q 1 year 08/11/2012 Flex Sig/CT Colonography Q 5 years 08/11/2012 ZOSTER VACCINE (1 of 2) 08/11/2017 INFLUENZA VACCINE (#1) 2024 BREAST CANCER SCREENING 08/18/2025 08/18/2024, 08/18 CERVICAL CANCER SCREENING 08/17/2027 PAP SMEAR 08/17/2027 08/16/2024 DTAP/TDAP/TD VACCINES (2 - Td or Tdap) 09/18/2027 COLORECTAL SCREENING 11/27/2030 11/27/2020 Colorectal Cancer Screening 11/27/2030 Insurance [facility] [id number] Care Teams Supervisor Kosher Dietary Service Relationship Specialty Start Date End Date Arpita Watters MD [address] [place] [phone] PCP - General Family Practice 06/07/23
--- OUTSIDE RECORDS SUMMARY | 2025-01-12 15:09 | XMS_ITS | Encounter Summary ---
Author Organization [facility] Address [address] [place] [address] Care Team Providers Care District Wire Chief Name Role Phone Arpita Watters MD Primary Care Provider [phone] Encounter Details Date Type Department Care Team (Late st Contact Info) Description 11/24/2021 Prep for Procedure [facility], [facility] [address] [place], [place] [phone] Basilio Villagran MD [facility]. [facility] [address] [place], [place] [id number] Social History Tobacco Use Types Packs/Day Years [...] Binge Drinking Not on file 06/07 Comments No Sex and Gender Information Value Date Recorded Sex Assigned at Not on file Legal Sex Female 8:11 PM CDT Gender Identity Not on file Sexual Orientation Not on file COVID-19 Exposure Response Date Recorded In the last 10 days, have yo u been in contact with someone who was confirmed or suspected to have Coronavirus/COVID-19? No / Unsure 11/16/2021 12:40 PM CDT documented as of this encounter Plan of Treatment Not on file documented as of this encounter Visit Diagnoses Not on filedocumented in this encounter Care Teams District Wire Chief Relationship Specialty Start Date End Date Arpita Watters MD [address] [place] [address] [place] [phone] PCP - General FAMILY PRACTICE 08/20/20 documented as of this encounter
--- OUTSIDE RECORDS SUMMARY | 2025-01-12 15:09 | XMS_ITS | Data Portability ---
Author Organization [facility], [place] Address [address] [place] [address] Care Team Providers Care Hearse Driver Name Role Phone KD CORONA Primary Care Provider Assessment Encounter Date Assessment Date Assessment LastModified by Organization Details LastModified Time 08/16/2024 08/16/2024 Annual gynecological exam performed. Patient will come back in a year unless there are new symptoms. Not available 08/16/2024 11:47:46 Plan of Treatment Reminders Order Date Submit Date Provider Last Modified By Organization Details Last Modified Time Details Appointments None recorded. Lab pap, IG + HR HPV - HPV regardless but if HPV is positive need subtyping 16,18/45 2024 025 [facility] (Lab), [address], [place], [address], 5 18:32:00 Referral None recorded. Procedures None recorded. Surgeries None recorded. Imaging MAMMO, screening, digital, bilateral 2024 025 dary Kelley [facility] (Radiology), [address] [facility] [address] , [place], [address], 5 10:56:06 Medication Orders None recorded. Patient TargetsNo targets recorded. Patient InstructionsNo instructions recorded. Reason for Referral None Reported. Results Created Date Observation Date Name Description Value Unit Range Abnormal Flag Note LastModifiedBy Organization Detail LastModifiedTime 08/17/1908/16/2024 IMAGE GUIDE D PAP AND HPV REGAR DLESS image guided Pap, HPV regardless of Pap result SEE RESULT S BELOW CASE REPOR T: Cytol ogy Gynec ologi wyatt Repor t Case: [id number] Autho deric dashawn Provi lynne: Dermo dy, Cat , ANP, PLAN CONSULTANT Colle cted: 08/16 1335 Order ing Locat ion: [place] [facility] Recei wallace: 08/17 0132 First Scree n: Paola Griffin , [place] Speci men: Marjorie leary Pap - Image d, Cervi x STATE MENT OF ADEQU ACY: Satis facto ry for evalu ation Trans forma tion zone compo nent prese nt ----- ----- ----- ----- ----- ----- ----- ----- ----- ----- ----- ----- ----- ----- ----- ----- ----- ---- FINAL DIAGN OSIS: Negat rosalie for Intra epith elial Lesdolores pires or Veronica carrillo (NIL) . Atrop hy prese nt. Elect karen gauthier d by Paola Griffin , [place] on 2024 at 1629 CDT ----- ----- ----- ----- ----- ----- ----- ----- ----- ----- ----- ----- ----- ----- ----- ----- ----- ---- HPV RESUL TS: HPV mRNA E6/E7 : No HPV mRNA Detec nithin NOTE: This high risk HPV mRNA assay detec ts fourt een high- risk HPV types (16, 18, 31, 33, 35, 39, 45, 51, 52, 56, 58, 59, 66, 68) witho ut diffe renti ation . COMME NT: This speci men was revie wed by a Cytot echno logis t and/o r Patho logis t (as indic ated in this repor t) after evalu ation using the Thinp rep Imagi ng Syste m. CLINI WYATT INFOR MATIO N: Menst rual Statu s: LMP (if appli cable ): Clini wyatt Histo ry/Pr eviou s Pap: Type of Neopl lia (if appli cable ): Signi fican t Clini wyatt Findi ngs: Other Histo ry: Hormo clarissa (if appli cable ): PAP EDUCA DENNIS L NOTE: The Pap Test is a scree gibran test with an inher ent false negat rosalie rate. Liqui d-bas ed sampl ing may decre ase, but will not elimi owen, false negat rosalie resul ts. A negat rosalie resul t does not precl ude the prese nce and/o r devel opmen t of disea se, since the prese nce of abnor mal cells in the sampl e depen ds on the locat ion of the lesio n and sampl ing techn ique. Fela nued regul ar scree gibran is the best metho d of cance r preve ntion . If repor nithin cytol ogic findi ng do not corre late with physi wyatt and/o r histo rical findi ngs, furth er inves tigat ion is recom bouchra d, as clini katharina rodriguez nted. Not Available [facility] (Lab) [address], [place], [address], 08/17/2024 18:32:00 Result Notes None recorded. Procedures Surgical History Date Name Laterality Status Provider Name and Address Organization Details Recorded Time 2 completed , [facility] 08/16/2024 11:48:01 2 Date of Last Mammogram completed , [facility] 08/16/2024 11:48:01 Imaging Results None recorded. Procedure Notes None recorded. Medical Equipment None Reported. Allergies No known drug allergies Medications Name Sig Start Date Stop Date Status Note LastModified by Organization Details LastModified Time atorvastatin 40 mg tablet active Not Available Not Available Not Available finasteride active Not Available Not A vailable Not Available hydrochlorothiazide active Not Availab le Not Available Not Available bupropion HCl active Not Available Not Available Not Available gabapentin active Not Available Not Av ailable Not Available Xarelto 2.5 mg tablet active Not Available Not Available Not Available Vitals Date Recorded Body height Body mass index (BMI) Body weight Systolic And Diastolic Provider Name and Address Organization Details Last Updated DateTime 08/16/2024 162.56 cm 37.2 kg/m2 60344.11 g 120/79 mm[Hg] Iveth Thornton [facility] 08/16/2024 11:53:51 Social History Question Answer Notes LastModified by Organizat ion Details LastModified Time Tobacco Smoking Status Never Smoker Iveth Thornton [facility] 08/16/2024 11:56:26 Do You Have An Advance Directive? Yes [email or web address] Information n ot available 08/16/2024 How Many Years Have You Consumed Alcohol? 30 [email or web address] Information not available 08/16/2024 Are You Blind Or Do You Have Difficulty Seeing? No [email or web address] Information n ot available 08/16/2024 What Is Your Level Of Caffeine Consumption? Occasional [email or web address] Information not available 08/16/2024 In The 14 Days Before Symptom Onset, Have You Had Close Contact With A Laboratory-confirm ed COVID-19 While That Case Was Ill? No [email or web address] Information n ot available 08/16/2024 In The 14 Days Before Symptom Onset, Have You Had Close Contact With A Person Who Is Under Investigation For COVID-19 While That Person Was Ill? No [email or web address] Information not available 08/16/2024 Have You Been To An Area Known To Be High Risk For COVID-19? No [email or web address] Information not available 08/16/2024 Are You Deaf Or Do You Have Serious Difficulty Hearing? No Information not available 08/16/2024 What Type Of Diet Are You Following? REGULAR [email or web address] Information n ot available 08/16/2024 What Is The Highest Grade Or Level Of School You Have Completed Or The Highest Degree You Have Received? [id number] [email or web address] Information not available 08/16/2024 Are There Any Guns Present In Your Home? Yes [email or web address] Information not available 08/16/2024 Do You Use Protection During Sex? No [email or web address] Information not available 08/16/2024 Do You Use Your Seat Belt Or Car Seat Routinely? Yes Information not available 08/16/2024 Are You Sexually Active? No [email or web address] Information not available 08/16/2024 Do You Have Smoke And Carbon Monoxide Detectors In Your Home? Yes [email or web address] Information not available 08/16/2024 How Much Tobacco Do You Smoke? No [email or web address] Information not available 08/16/2024 Do You Use Sunscreen Routinely? No [email or web address] Information not available 08/16/2024 Have You Used IV Drugs? No [email or web address] Information not available 08/16/2024 Do You Have Difficulty Walking Or Climbing Stairs? No [email or web address] Information not available 08/16/2024 Sex: Unknown Functional Status Question Answer Note LastModified by Organizat ion Details LastModified Time Do you use any illicit or recreational drugs? No [email or web address] Information not available 08/16/2024 What is your level of alcohol consumption? Occasional [email or web address] Information not available 08/16/2024 Are you currently employed? Yes [email or web address] Information not available 08/16/2024 Are you able to walk independently without assistance or assistive devices? YESWOREST [email or web address] Information not available 08/16/2024 Are you able to care for yourself independently? 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 No Information not available 08/16/2024 What is your exercise level? None Information not available 08/16/2024 Mental Status Question Answer Note LastModified by Organization D etails LastModified Time Do you feel stressed (tense, restless, nervous, or anxious, or unable to sleep at night)? [id number] [email or web address] Information not available 08/16/2024 Family History Relationship Description Onset Age of this Age Resolved Age Notes LastModified by Organization Details LastModified Time Mother Heart disease [email or web address] Not available 2024 11:48:01 Mother Diabetes mellitus [email or web address] Not available 2024 11:56:09 Sister Heart disease [email or web address] Not available 2024 11:48:01 Father Heart disease [email or web address] Not available 2024 11:48:01 Notes:oat cancer- father Medical History Condition Response Allergies (Food, seasonal, environmental ) N Other N Breast Cancer N Drug/Latex Allergies/Reactions N Blood Transfusion N Dermatologic Disorders N Lung Disease N Defects or Inherited Disease N Breast Problem N Gestational Diabetes N Hematologic disorders N Anesthesia Complications N History of STI N Deep Vein Thrombosis N Polycystic ovary syndrome N Anxiety Disorder N Autoimmune disease N Arthritis N Infertility N Polyps N Acid Reflux (GERD) N History of abnormal pap N Cancer N Stroke N Varicosities N Neurologic/Epilepsy N Endometriosis N High Cholesterol N Headaches N Fibromyalgia N Kidney Disease N Heart Problems N Kidney or Bladder Problems N Thyroid Problems N GI Problems N Eating Disorder N Anemia N Art (IVF or FET) N Psychiatric Illness N Ovarian Cancer N Diabetes N Pulmonary (TB, Asthma) N Hepatitis/Liver Disease N No Past Medical History N Eczema N Urinary Tract Infection N Abuse/Domestic Violence N Asthma N Trauma/Violence N Depression/ depression N Heart Disease N Pre-Eclampsia N Hypertension N Osteoporosis N Thrombophilias N Gynecological History Statement/Question Response Date of Last Mammogram 03/27/2021 N STIs/STDs N Was last menstrual period normal N HPV Vaccine N Current Control Method None If Post Menopausal, Age at Menopause 39 Date of Last Colonoscopy Sexually Active? Y Age of first menstrual cycle 17 Date of Last Pap Smear Sexual Problems? N Desired Control Method None 03/27/2021 N Obstetrics History GPAL:G 0 P 0 0 0 0 Past Encounters Encounter ID Performer Location Encounter Start Date Encounter Closed Date Diagnosis/Indication Diagnosis SNOMED-CT Code Diagnosis ICD10 Code Diagnosis IMO Codes Diagnosis Note [id number] Dorian Adames MD [facility] [address] [address] 08/16/2024 11:46:26 08/16/2024 12:41:54 Well woman health examination [id number] Z01.419 [id number] Annual gynecologi wyatt exam performed. Patient will come back in a year unless there are new symptoms. Suggest Calcium with Vitamin D if not eating in diet. Patient advised to get annual flu shot. Recommend yearly physicals and perform monthly breast exams. Genetic testing is available for patients with family history of cancer. Engage in safe sexual practices, use condoms. Encouraged to have daily exercise. Avoid tobacco and illicit drugs, moderation of alcohol. If BMI greater than 25 dietary consult advised. If you have any questions please call or email. mammogram- order given, pt to schedule colon cancer screening - UTD PCP DEXA scan- n/a Pap smear- pap w/ HPV collected laboratory evaluation - PCP STI testing - declined Screening mammography 24 [id number] Z12.31 [id number] Health Concerns Section Related Observation LastModified by Organization Detai ls LastModified Time None Recorded Concern Status LastModified by Organization Details LastModified Time None Recorded Advance Directives Directive Y: Payers Insurance Date Sequence Insurance Name Policy Number Policy Chiang Covered Member ID Chiang Member ID Guarantor Name 08/15/2024 1 [facility] [id number] Missy Briseno [id number] Missy Briseno Notes Date Note Type Note Provider Name and Address Organization Details Recorded Time 5 text/html Annual Tourist Information Assistant Post-MenopausalReported by PatientGenitourinary symptomsFor menopausal symptoms, patient reportsno menopausal symptomsandnormal vaginal lubrication. For vaginal bleeding, patient reportshistory of menopause having occurredandno history of post menopausal bleeding. For urinary symptoms, patient reportsno hematuria,no incontinence,no nocturia, andno urinary frequency. For vulva, patient reportsno genital lesionandno vulvar atrophy. For vagina, patient reportsnormal vaginal dischargeandno vaginal atrophy.Breast symptomsFor breast, patient reportsno breast lump,no nipple discharge, andno breast pain.Psychological symptomsFor sexual complaints, patient reportsno sexual complaints. For psychological symptoms, patient reportsno depressionandno anxiety.Preventative measuresFor preventive measures, patient reportsencourage regular mammograms starting age 40,encourage self breast examination,encourage regular exercise, andencourage no tobacco use. Patient presents for annual well woman exam. Patient denies concerns today. Iveth Thornton [facility] 08/16/2024 12:40:22 OBGyn Episode No OBEpisode recorded.
--- OUTSIDE RECORDS SUMMARY | 2025-01-12 15:09 | XMS_ITS | Encounter Summary ---
Author Organization [facility] Address 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 Gender Identity Not on file Sexual Orientation Not on file documented as of this encounter Plan of Treatment Upcoming Encounters Date Type Department Care Team (Late st Contact Info) Description 10/05/2025 9:15 AM CDT Appointment [facility] [place] [id number] [facility] [address] [place] [address] [place] [address] [address] [facility] [address] [place] [address] 10/05/2025 10:15 AM CDT Appointment [facility] [place] [id number] [facility] [address] [place] [address] [place] [address] [facility] [address] [place] [address] 10/05/2025 11:30 AM CDT Office Visit [facility] [address] [address] [facility] [address] [address] [address] [facility] [address] [place] [address] [place] [address] [address] [facility] [address] [place] [address] documented as of this encounter Visit Diagnoses Diagnosis Carpal tunnel syndrome- Primary documented in this encounter Care Teams Lead Supply Worker Relationship Specialty Start Date End Date Arpita Watters MD [address] [place] [address] [place] [phone] PCP - General Family Practice 06/07/23 documented as of this encounter
--- OUTSIDE RECORDS SUMMARY | 2025-01-12 15:09 | XMS_ITS | Clinical Summary ---
Author Organization [facility] Address [address] [place] [address] Care Team Providers Care Training Director Name Role Phone Arpita Watters MD Primary Care Provider [phone] Allergies No known active allergies Medications cetirizine 10 MG tablet Take 1 tablet by mouth daily. Active gabapentin 300 MG capsule Take 300 mg by mouth 2 (two) times daily. 1 Active hydroCHLOROthia zide 25 MG tablet Take 25 mg by mouth daily. 1 Active Multiple Vitamins-Calciu m (ONE-A-DAY WOMENS FORMULA OR) Take 1 tablet by mouth daily. Active vitamin D3, cholecalciferol , 1000 UNIT Tab tablet Take 1 tablet by mouth daily. Active vitamin B-12 (CYANOCOBALAMIN ) 1000 mcg tablet Take 1,000 mcg by mouth daily. Active buPROPion XL (WELLBUTRIN XL) 150 MG 24 hr tablet 3 Active diclofenac EC (VOLTAREN) 75 MG tablet every 12 (twelve) hours. Active valACYclovir (VALTREX) 1 g tablet valacyclovir 1 gram tablet Take 1 tablet every 12 hours by oral route for 3 days. Active rivaroxaban (XARELTO) 2.5 MG tablet TAKE 1 TABLET(2.5 MG) BY MOUTH TWICE DAILY 180 tablet 4 Active Active Problems Problem Noted Date Diagnosed Date Tendinitis of right rotator cuff 07/28/2021 Impingement syndrome of right shoulder region Peripheral vascular disease 09/12/2020 Achilles tendinitis 09/10/2020 Disorder of shoulder 09/10/2020 Pain in both lower extremities 08/01/2020 Hyperlipidemia 05/09/2019 Cobalamin deficiency 10/27/2018 Chronic back pain 09/17/2017 Pain in joint of left shoulder 09/17/2017 Immunizations Immunization Administration Dates Next Due Tdap (Generic) 09/17/2017 Family History Medical History Relation Comments Cancer Father Heart Disease Father Heart Disease Mother Relation Status Comments Father (Age 54) Mother (Age 62) Social History Tobacco Use Types Packs/Day Years [...] Sign Reading Time Taken Comments Blood Pressure 140/60 02/17/2023 3:54 PM CONCRETE ANALYST Pulse 85 02/17/2023 3:54 PM CONCRETE ANALYST Temperature - - Respiratory Rate 17 04/28/2022 6:30 PM CONCRETE ANALYST Oxygen Saturation 95% 04/28/2022 6:30 PM CONCRETE ANALYST Inhaled Oxygen Concentration - - Weight 98.8 kg (217 lb 12.8 oz) 02/17/2023 3:54 PM CONCRETE ANALYST Height 162.6 cm (5' 4) 02/17/2023 3:54 PM CONCRETE ANALYST Body Mass Index 37.39 02/17/2023 3:54 PM CONCRETE ANALYST Plan of Treatment Health Maintenance Due Date Last Done Comments ASCVD LDL 1967 ASCVD Statin 1967 Cervical Cancer Screening Pa p Smear (Age 30 to 64) Every 3 Years 1967 Colorectal Cancer Screening Colonoscopy (10 Years) 1967 Annual Physical 08/11/1970 Hepatitis C 08/11/1985 Hepatitis B Vaccines (1 of 3 - 19+ 3-dose series) 08/11/1986 Pneumococcal Vaccine: 50+ Ye ars (1 of 2 - PCV) 08/11/1986 Cervical Cancer Screening Pa p with HPV Testing (Age 30 to 64) Every 5 Years 08/11/1997 Cervical Cancer Screening with HPV 08/11/1997 Mammogram Screening 2007 Zoster Vaccines (1 of 2) 08/11/2017 COVID-19 Vaccine (2 - 2024-2 6 season) 2024 05/14/2020 Influenza Adult (#1) 2024 DTaP, Tdap and Td Vaccines ( 2 - Td or Tdap) 09/18/2027 09/17/2017 Hepatitis A Vaccines Aged Out No long er eligible based on patient's age to complete this topic Meningococcal B Vaccine Aged Out No l onger eligible based on patient's age to complete this topic Meningococcal Vaccine Aged Out No suhas jose alberto eligible based on patient's age to complete this topic RSV Immunizations Under 20 Months Aged Out No longer eligible based on patient's age to complete this topic Insurance Care Teams Training Director Relationship Specialty Start Date End Date Arpita Watters MD [address] [place] [address] [place] [address] PCP - General FAMILY PRACTICE 08/20/20
--- OUTSIDE RECORDS SUMMARY | 2025-01-12 15:09 | XMS_ITS | Clinical Summary ---
Author Organization [facility] Address [address] [place] [address] Care Team Providers Care Elementary Librarian Name Role Phone Makeda Grant NP Primary Care Provider [phone] Allergies No known active allergies Medications gabapentin (NEURONTIN) 300 mg capsule gabapentin 300 mg capsule 2 po bid MK 05/14/22 07/27/19 21 Active rivaroxaban (Xarelto) 2.5 mg tablet Xarelto 2.5 mg tablet 23 Active buPROPion XL (WELLBUTRIN XL) 150 mg 24 hr tablet bupropion HCl XL 150 mg 24 hr tablet, extended release TAKE 1 TABLET BY MOUTH EVERY DAY 03/16/19 23 Active hydroCHLOROth iazide (HYDRODIURIL) 25 mg tablet hydrochlorothiazide 25 mg tablet TAKE 1 TABLET BY MOUTH EVERY DAY 05/11/19 21 Active cetirizine (ZyrTEC) 10 mg tablet cetirizine 10 mg tablet TAKE 1 TABLET BY MOUTH EVERY DAY Active meclizine (ANTIVERT) 25 mg tablet meclizine 25 mg tablet TAKE 1 TABLET BY MOUTH EVERY 6 HOURS UNTIL WEDNESDAY THEN TAKE NEEDED Active cholecalcifer ol 25 mcg (1,000 unit) tablet Vitamin D3 10/08/19 21 Active mv,calcium,mi n/iron/folic/ vitK (ONE-A-DAY WOMEN'S COMPLETE ORAL) Take 1 tablet by mouth daily Active erythromycin (ILOTYCIN) ophthalmic ointment Place ointment on right eyelid incisions [address] times [address] Only place inside the eye for irritation. 3.5 g 3 06/25/19 23 Active Active Problems No known active problems Surgical History Surgery Date Site/Laterality Comments ANGIOPLASTY / STENTING ILIAC 03/08/2021 - 03/07/2022 Bilateral and Medical History Medical History Date Comments Clotting disorder Arthritis Family History Medical History Relation Name Comments Cancer Father Cataracts Father Other cancer Father Cataracts Mother Diabetes Mother Breast cancer Neg Hx Glaucoma Neg Hx Macular degeneration Neg Hx Ovarian cancer Neg Hx Retinal detachment Neg Hx Thyroid cancer Neg Hx Thyroid disease Neg Hx Relation Name Status Comments Father Mother Social History Tobacco Use Types Packs/Day Years Used Date Smoking Tobacco: Former Cigarettes Smokeless Tobacco: Never Tobacco Cessation:Counseling Given: No Comments No Sex and Gender Information Value Date Recorded Sex Assigned at Not on file Legal Sex Female 12:34 PM CDT Gender Identity Not on file Sexual Orientation Not on file Obstetrics History Para Term AB IAB SAB Ectopic Multiple Livin g Live Births 0 0 0 0 0 0 0 0 0 0 0 Last Filed Vital Signs Vital Sign Reading Time Taken Comments Blood Pressure - - Pulse - - Temperature - - Respiratory Rate - - Oxygen Saturation - - Inhaled Oxygen Concentration - - Weight 97.5 kg (215 lb) 08/18/2024 9:49 AM CDT Height 162.6 cm (5' 4) 08/18/2024 9:49 AM CDT Body Mass Index 36.9 08/18/2024 9:49 AM CDT Plan of Treatment Health Maintenance Due Date Last Done Comments Cervical Cancer Screening 1967 Colon Cancer Screening-Colonoscopy 1967 Depression Screening 1967 Hepatitis C Screening 1967 Hepatitis B Screening 08/11/1985 Regular Well Visit/Exam 18-64 08/11/1985 Pneumococcal vaccine <65 (1 of 2 - PCV) 08/11/1986 Zoster Vaccine (1 of 2) 08/11/2017 Covid-19 Vaccine (3 season) 2024, 05/14/2020 Influenza Vaccine (#1) 2024 Breast Cancer Screening-Mammogram 08/18/2025 025 DTaP/Tdap/Td Vaccine (2 - Td or Tdap) 09/18/2027 Procedures Procedure Name Priority Date/Time Associated Diagnosis Comments SCREENING MAMMOGRAM BILATERAL W SILVIO Schedule Routine, Read Routine (OP Routine) 08/18/2024 9:58 AM CDT Screening mammogram, encounter for from Last 3 Months or Most Recently Relevant to Health Maintenance Results * Screening Mammogram Bilateral W Silvio (08/18/2024 9:58 AM CDT) Anatomical Region Laterality Modality Breast Bilateral Mammography Impressions 08/20/2024 2:42 PM CDT Bilateral No evidence of malignancy in either breast. OVERALL BI-RADS FINAL ASSESSMENT: 1 - Negative RECOMMENDATION: Recommend bilateral annual screening mammography. Narrative 08/20/2024 2:42 PM CDT EXAMINATION: Screening Mammogram Bilateral W Silvio: 08/18/2024 COMPARISON: TECHNIQUE: Mammography was performed with 2D and digital breast tomosynthesis (DBT) images. CAD was utilized. BREAST PARENCHYMAL COMPOSITION: The breasts are heterogeneously dense, which may obscure small masses. FINDINGS: Bilateral There is no suspicious mass, calcification, or architectural distortion in either breast. us Self Screening Mammogram IMG MAMMO PROCEDURES Fi nal Result from Last 3 Months or Most Recently Relevant to Health Maintenance Insurance [facility] CHOICE PLUS [facility] CHOICE PLUS [place] [id number] Care Teams Elementary Librarian Relationship Specialty Start Date End Date Makeda Grant NP [address] [place] [id number] PCP - General Nurse Practitioner 08/17/24
--- OUTSIDE RECORDS SUMMARY | 2025-01-12 15:09 | XMS_ITS | Encounter Summary ---
Author Organization [facility] Address [address] [place] [address] Care Team Providers Care Exterior Interior Specialist Name Role Phone Arpita Watters MD Primary Care Provider [phone] Encounter Details Date Type Department Care Team (Late st Contact Info) Description 08/02/2020 Prep for Procedure [facility], [facility] [address] [place], [place] [address] Basilio Villagran MD [facility]. [facility] [address] [place], [place] [id number] Social History Tobacco Use Types Packs/Day Years [...] Exposure Response Date Recorded In the last month, have you been in contact with someone who was confirmed or suspected to have Coronavirus / COVID-19? No / Unsure 08/01/2020 11:22 AM CDT documented as of this encounter Plan of Treatment Not on file documented as of this encounter Visit Diagnoses Not on filedocumented in this encounter Care Teams Exterior Interior Specialist Relationship Specialty Start Date End Date Arpita Watters MD [address] [place] [place] [phone] PCP - General FAMILY PRACTICE 08/20/20 documented as of this encounter
== END 2025-01-12 15:04 | disposition home or self-care (01) ==
PROVIDERS: PCP Nurse Practitioner Adult Health; Visit Provider Nurse Practitioner Adult Health
DX: R10.13 Epigastric pain (principal); R10.9 Unspecified abdominal pain
CPT/HCPCS: 74176

== ENCOUNTER 2025-01-31 01:32 | Day surgery (SDC) | payer OTHER, SELFPAY ==
[2025-01-24 10:02] VITALS: BMI 35.9
--- NOTE | 2025-01-24 10:28 | PC.NURSE ---
Pt informed to stop Xarelto, last dose 01/31/25. Pt stated understanding.
--- OUTSIDE RECORDS SUMMARY | 2025-01-31 01:36 | XMS_ITS | Encounter Summary ---
Author Organization [facility] Address [address] [place] [address] Care Team Providers Care Pecan Grower Name Role Phone Arpita Watters MD Primary [...] on file Legal Sex Female 4:29 AM THERAPIST PHYSICAL Gender Identity Not on file Sexual Orientation Not on file documented as of this encounter Plan of Treatment Upcoming Encounters Date Type Department Care Team (Late st Contact Info) Description 10/05/2025 9:15 AM CDT Appointment [facility] [place] [address] [facility] [address] [place] [address] [place] [address] [facility] [address] [place] [address] 10/05/2025 10:15 AM CDT Appointment [facility] [place] [address] [facility] [address] [place] [address] [place] [address] [facility] [address] [place] [address] 10/05/2025 11:30 AM CDT Office [facility] [address] [facility] [address] [address] [address] [facility] [address] [place] [address] [place] [address] [facility] [address] [place] [address] documented as of this encounter Visit Diagnoses Diagnosis Carpal tunnel syndrome- Primary documented in this encounter Care Teams Pecan Grower Relationship Specialty Start Date End Date Arpita Watters MD [address] [place] [address] [place] [phone] PCP - General Family Practice 06/07/23 documented as of this encounter
--- OUTSIDE RECORDS SUMMARY | 2025-01-31 01:36 | XMS_ITS | Encounter Summary ---
Author Organization [facility] Address [address] [place] [address] Care Team Providers Care Radar Engineering Teacher Name Role Phone Arpita Watters MD Primary Care Provider [phone] Encounter Details Date Type Department Care Team (Late st Contact Info) Description 07/02/2020 [facility] [address] Yolanda Green MA Social History Tobacco Use [...] on filedocumented in this encounter Care Teams Radar Engineering Teacher Relationship Specialty Start Date End Date Arpita Watters MD [address] [place] [address] [place] [phone] PCP - General FAMILY PRACTICE 08/20/20 documented as of this encounter
--- OUTSIDE RECORDS SUMMARY | 2025-01-31 01:36 | XMS_ITS | Clinical Summary ---
Author Organization [facility] Address [address] [place] [address] Care Team Providers Care Respiratory Physician Name Role Phone Arpita Watters MD Primary Care Provider [phone] Allergies No known active allergies Medications cetirizine [...] Comments Blood Pressure 140/60 02/17/2023 3:54 PM FUNDS DEVELOPMENT DIRECTOR Pulse 85 02/17/2023 3:54 PM FUNDS DEVELOPMENT DIRECTOR Temperature - - Respiratory Rate 17 04/28/2022 6:30 PM FUNDS DEVELOPMENT DIRECTOR Oxygen Saturation 95% 04/28/2022 6:30 PM FUNDS DEVELOPMENT DIRECTOR Inhaled Oxygen Concentration - - Weight 98.8 kg (217 lb 12.8 oz) 02/17/2023 3:54 PM FUNDS DEVELOPMENT DIRECTOR Height 162.6 cm (5' 4) 02/17/2023 3:54 PM FUNDS DEVELOPMENT DIRECTOR Body Mass Index 37.39 02/17/2023 3:54 PM FUNDS DEVELOPMENT DIRECTOR Plan of Treatment Health Maintenance Due Date Last Done Comments Cervical Cancer Screening Pa p Smear (Age [...] to complete this topic Insurance Care Teams Respiratory Physician Relationship Specialty Start Date End Date Arpita Watters MD [address] [place] [address] [place] [address] PCP - General FAMILY PRACTICE 08/20/20
--- OUTSIDE RECORDS SUMMARY | 2025-01-31 01:36 | XMS_ITS | Encounter Summary ---
Author Organization [facility] Address [address] [place] [address] Care Team Providers Care Transportation Assistant Name Role Phone Arpita Watters MD Primary Care Provider [phone] Encounter Details Date Type Department Care Team (Late st Contact Info) Description 11/24/2021 Prep for Procedure [place], [facility] [address] [place], [place] [address] Basilio Villagran MD [facility]. [facility] [address] [place], [place] [phone] Social History Tobacco Use Types Packs/Day Years [...] on filedocumented in this encounter Care Teams Transportation Assistant Relationship Specialty Start Date End Date Arpita Watters MD [address] [place] [address] [place] [phone] PCP - General FAMILY PRACTICE 08/20/20 documented as of this encounter
--- OUTSIDE RECORDS SUMMARY | 2025-01-31 01:37 | XMS_ITS | Encounter Summary ---
Author Organization [facility] Address [address] [place] [address] Care Team Providers Care Assistant Director Of Public Works Name Role Phone Arpita Watters MD Primary Care Provider [phone] Encounter Details Date Type Department Care Team (Late st Contact Info) Description 08/02/2020 Prep for Procedure [facility] THREE [facility], [facility] [address] [place], [place] [address] Basilio Villagran MD [facility]. [facility] [address] [place], [place] [id number] Social History Tobacco Use Types Packs/Day Years [...] on filedocumented in this encounter Care Teams Assistant Director Of Public Works Relationship Specialty Start Date End Date Arpita Watters MD [address] [place] [address] PCP - General FAMILY PRACTICE 08/20/20 documented as of this encounter
--- OUTSIDE RECORDS SUMMARY | 2025-01-31 01:37 | XMS_ITS | Clinical Summary ---
Author Organization [facility] Address [address] [place] [address] Care Team Providers Care Facilities Maintenance Manager Name Role Phone Makeda Grant NP Primary Care Provider [phone] Allergies No known active allergies Medications gabapentin [...] Most Recently Relevant to Health Maintenance Insurance [facility] CHOICE PLUS [facility] CHOICE PLUS [place] [id number] Care Teams Facilities Maintenance Manager Relationship Specialty Start Date End Date Makeda Grant NP [address] [place] [address] PCP - General Nurse Practitioner 08/17/24
--- OUTSIDE RECORDS SUMMARY | 2025-01-31 01:37 | XMS_ITS | Data Portability ---
Author Organization [facility] Address [address] [place] [address] Care Team Providers Care Stamp Redemption Clerk Name Role Phone KD CORONA Primary Care Provider [phone] Assessment Encounter Date Assessment Date Assessment LastModified by Organization Details LastModified Time 08/16/2024 08/16/2024 Annual gynecological exam performed. Patient will come back in a year unless there are new symptoms. [email or web address] Not available 08/16/2024 11:47:46 Plan of Treatment Reminders Order Date Submit Date Provider Last Modified By Organization Details Last Modified Time Details Appointments None recorded. Lab pap, IG + HR HPV - HPV regardless but if HPV is positive need subtyping 16,18/45 2024 025 [facility] (Lab), [address] [facility], [place], [address], 5 18:32:00 Referral None recorded. Procedures None recorded. Surgeries None recorded. Imaging MAMMO, screening, digital, bilateral 2024 025 dary Kelley [facility] (Radiology), [address] [facility] , [place], [address], 5 10:56:06 Medication Orders None recorded. Patient [...] Provi lynne: Dermo dy, Cat , ANP, SLITTER OPERATOR Colle cted: 08/16 1335 Order ing Locat [...] techn ique. Fela nued regul ar scree gibrna is the best metho d of cance r preve ntion . If repor nithin cytol ogic findi ng do not corre late with physi wyatt and/o r histo rical findi ngs, furth er inves tigat ion is recom bouchra d, as clini katharina rodriguez nted. Not Available [facility] (Lab) [address], [place], [address], 08/17/2024 18:32:00 Result Notes None recorded. Procedures Surgical History Date Name Laterality Status Provider Name and Address Organization Details Recorded Time [address] [facility] 08/16/2024 11:48:01 2 Date of Last Mammogram completed [facility] 08/16/2024 11:48:01 Imaging Results None recorded. [...] Updated DateTime 08/16/2024 162.56 cm 37.2 kg/m2 88793.11 g 120/79 mm[Hg] Iveth Thornton [facility] 08/16/2024 11:53:51 Social History Question Answer Notes LastModified by Organizat ion Details LastModified Time Tobacco Smoking Status Never Smoker Iveth Thornton [facility] 08/16/2024 11:56:26 Do You Have An Advance Directive? Yes [email or web address] Information n ot available 08/16/2024 How Many Years Have You Consumed Alcohol? 30 [email or web address] Information not available 08/16/2024 Are You Blind Or Do You Have Difficulty Seeing? No Information n ot available 08/16/2024 What Is Your Level Of Caffeine Consumption? Occasional [email or web address] Information not available 08/16/2024 In The 14 Days Before Symptom Onset, Have You Had Close Contact With A Laboratory-confirm ed COVID-19 While That Case Was Ill? No [email or web address] Information n ot available 08/16/2024 In The 14 Days Before Symptom Onset, Have You Had Close Contact With A Person Who Is Under Investigation For COVID-19 While That Person Was Ill? No [email or web address] Information not available 08/16/2024 Have You Been To An Area Known To Be High Risk For COVID-19? No [email or web address] Information not available 08/16/2024 Are You Deaf Or Do You Have Serious Difficulty Hearing? No [email or web address] Information not available 08/16/2024 What Type Of Diet Are You Following? REGULAR [email or web address] Information n ot available 08/16/2024 What Is The Highest Grade Or Level Of School You Have Completed Or The Highest Degree You Have Received? [id number] [email or web address] Information not available 08/16/2024 Are There Any Guns Present In Your Home? Yes [email or web address] Information not available 08/16/2024 Do You Use Protection During Sex? No [email or web address] Information not available 08/16/2024 Do You Use Your Seat Belt Or Car Seat Routinely? Yes [email or web address] Information not available 08/16/2024 Are You Sexually Active? No [email or web address] Information not available 08/16/2024 Do You Have Smoke And Carbon Monoxide Detectors In Your Home? Yes [email or web address] Information not available 08/16/2024 How Much Tobacco Do You Smoke? No [email or web address] Information not available 08/16/2024 Do You Use Sunscreen Routinely? No [email or web address] Information not available 08/16/2024 Have You Used IV Drugs? No Information not available 08/16/2024 Do You Have Difficulty Walking Or Climbing Stairs? No [email or web address] Information not available 08/16/2024 Sex: Unknown Functional Status Question Answer Note LastModified by Organizat ion Details LastModified Time Do you use any illicit or recreational drugs? No Information not available 08/16/2024 What is your level of alcohol consumption? Occasional [email or web address] Information not available 08/16/2024 Are you currently employed? Yes [email or web address] Information not available 08/16/2024 Are you able to walk independently without assistance or assistive devices? YESWOREST Information not available 08/16/2024 Are you able to care for yourself independently? 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 No [email or web address] Information not available 08/16/2024 What is your exercise level? None [email or web address] Information not available 08/16/2024 Mental Status Question Answer Note LastModified by Organization D etails LastModified Time Do you feel stressed (tense, restless, nervous, or anxious, or unable to sleep at night)? [id number] [email or web address] Information not available 08/16/2024 Family History Relationship Description Onset Age of this Age Resolved Age Notes LastModified by Organization Details LastModified Time Mother Heart disease [email or web address] Not available 2024 11:48:01 Mother Diabetes mellitus [email or web address] Not available 2024 11:56:09 Sister Heart disease [email or web address] Not available 2024 11:48:01 Father Heart disease [email or web address] Not available 2024 11:48:01 Notes:oat cancer- father [...] ICD10 Code Diagnosis IMO Codes Diagnosis Note [id number] Dorian Adames MD [facility] [address] [address] 08/16/2024 11:46:26 08/16/2024 12:41:54 Well woman health examination [id number] Z01.419 [id number] Annual gynecologi wyatt exam performed. Patient will [...] STI testing - declined Screening mammography 24 186412 Z12.31 [id number] Health Concerns Section Related Observation LastModified by Organization Detai ls LastModified Time None Recorded Concern Status LastModified by Organization Details LastModified Time None Recorded Advance Directives Directive Y: Payers Insurance Date Sequence Insurance Name Policy Number Policy Chiang Covered Member ID Chiang Member ID Guarantor Name 08/15/2024 1 [facility] [id number] Missy Briseno [id number] Missy Briseno Notes Date Note Type Note Provider Name and Address Organization Details Recorded Time 5 text/html Annual Contribution Solicitor Post-MenopausalReported by PatientGenitourinary symptomsFor menopausal symptoms, patient [...] exam. Patient denies concerns today. Iveth Thornton [facility] 08/16/2024 12:40:22 OBGyn Episode No OBEpisode recorded.
[2025-01-31 06:24] VITALS: BP 127/75; PULSE 69; RESP 18; TEMP 36.6; BMI 35.4
[2025-01-31] MEDS: LACTATED RINGERS 1,000 ML 150 ML IV CONT (06:35)
[2025-01-31] MEDS: SIMETHICONE ORAL SUSPENSION 20 MG/0.3 ML 30 ML BOTTLE 1.8 ML PO (06:37)
--- NOTE | 2025-01-31 07:04 | WPDANESEPPF ---
Anes - Initial Pre Proc Eval Procedure: Operation Date: 01/31/25 07:30 Proposed Procedures p Esophagogastroduodenoscopy EGD - Avery Hernandez MD Date/Time: 01/31/25 07:04 Surgeon: Avery Hernandez MD Pre Op Diagnosis: Dysphagia, epigastric pain Patient Data Age: 59 Gender: F Height: 1.63 m Weight: 93.8 kg Last Vital Signs Temp 97.9 F 01/31/25 06:24 Pulse 69 01/31/25 06:24 Resp 18 01/31/25 06:24 BP 127/75 01/31/25 06:24 Allergies Allergy/AdvReac Type Severity Reaction Status Date / Time No Known Allergies Allergy Verified 01/31/25 06:22 Home Medications ?Medication ?Instructions ?Recorded ?Confirmed ?Type cetirizine 10 mg tablet 10 mg PO DAILY 01/10/20 01/31/25 History bupropion HCl 150 mg 24 hr tablet, 150 mg PO QAM 07/13/22 01/31/25 History extended release rivaroxaban 2.5 mg tablet (Xarelto) 2.5 mg PO BID 07/13/22 01/31/25 History atorvastatin 40 mg tablet (Lipitor) 40 mg PO DAILY 06/21/24 01/31/25 History finasteride 5 mg tablet 5 mg PO DAILY 06/21/24 01/31/25 History gabapentin 600 mg tablet 600 mg PO BID 06/21/24 01/31/25 History metformin 500 mg tablet,extended 500 mg PO DAILY #90 tabs 07/12/24 01/31/25 Rx release 24 hr (Glucophage XR) hydrochlorothiazide 25 mg tablet 25 mg PO DAILY #90 tabs 08/30/24 01/31/25 Rx phentermine 37.5 mg tablet 37.5 mg PO DAILY #30 tabs 12/13/24 01/24/25 Rx omeprazole 40 mg capsule,delayed 40 mg PO DAILY #30 caps 01/01/25 01/31/25 Rx release Patient hx anesthesia problems: none Family hx anesthesia problems: none Results Review: All pre-operative results and documents have been reviewed as part of the pre-operative evaluation. [facility] Past Medical History Medical History Arthritis History of postoperative nausea and vomiting History of cardiac disorders unknown Stents - Iliac Arteries - 08/2021, 01/2022, 04/2022 History of stress test Claudication of calf muscles Left leg claudication Degenerative joint disease (DJD) of lumbar spine Vitamin D deficiency CRP elevated Inflammatory arthritis Surgical History Surgical History Status post insertion of iliac artery stent History of carpal tunnel surgery Family History Family History Mother Heart disease Diabetes mellitus Hypertension Father Heart disease Cancer Alcoholism Heart problem Sibling Rheumatoid arthritis Alcoholism Cerebrovascular accident Sibling Heart disease Social History Social History Smoking packs per day: 0.75 Smoking cigarettes per day: 15.0 Years smoked: 25 Smoking pack-years: 18.75 Smoking status: Former smoker Tobacco type: cigarettes Alcohol intake: never Substance use type: does not use Do You Feel Safe in your Home?: Yes Lack of Transportation: No Lack of Food: Never True Current Housing: I Have Housing Concerned About Future Housing: No Difficulty Paying Gas/Electric Bills: No Difficulty Paying for Meds: No Currently Unemployed: No Education: Bachelor's Degree Difficulty w/ Childcare or Family Care: No Living arrangements: with family Additional living arrangements comments: Not listed Occupation/Education: occupation Additional occupation/education comments: [employer] - 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 Gender identity (if verbalized by the patient): Female Spiritual care concerns: No Agree to blood products: Yes Anes - Eval Final PreProcedure Day of Procedure 01/31/25 07:04 Patient weight: obese Lungs: normal air movement Airway: Mallampati scale class II Neurological: alert and oriented Last oral intake: >/= 8 hours ASA classification: III Emergent: no Anesthetic plan: proceed Anesthesia type and monitoring: general GIVS and standard monitoring Results Review: All pre-operative results and documents have been reviewed as part of the pre-operative evaluation.BMI 35, HTN, hyperlipidemia, PAD on xarelto, (on hold), ET limited by leg pain, no cp or sob. Informed Consent: The patient's anesthetic plan and its attendant risks and benefits were discussed with the patient/family/POA. Questions were solicited and answers provided to the satisfaction of the patient/family/POA.
--- NOTE | 2025-01-31 07:30 | PM.IMHP ---
H&P: HPI History of Present Illness Date/Time: 01/31/25 07:30 Chief Complaint: Abdominal pain Narrative: Patient has been complaining of intermittent epigastric pain for several months. She went to an emergency room and obtained a CT scan of the abdomen showing no acute pathology. She is now referred for EGD. Review of Systems Review of Systems: All systems reviewed & are unremarkable except as noted in HPI and below [facility] Past Medical History Medical History Arthritis History of postoperative nausea and vomiting History of cardiac disorders unknown Stents - Iliac Arteries - 08/2021, 01/2022, 04/2022 History of stress test Claudication of calf muscles Left leg claudication Degenerative joint disease (DJD) of lumbar spine Vitamin D deficiency CRP elevated Inflammatory arthritis Surgical History Surgical History Status post insertion of iliac artery stent History of carpal tunnel surgery Family History Family History Mother Heart disease Diabetes mellitus Hypertension Father Heart disease Cancer Alcoholism Heart problem Sibling Rheumatoid arthritis Alcoholism Cerebrovascular accident Sibling Heart disease Social History Social History Smoking packs per day: 0.75 Smoking cigarettes per day: 15.0 Years smoked: 25 Smoking pack-years: 18.75 Smoking status: Former smoker Tobacco type: cigarettes Alcohol intake: never Substance use type: does not use Do You Feel Safe in your Home?: Yes Lack of Transportation: No Lack of Food: Never True Current Housing: I Have Housing Concerned About Future Housing: No Difficulty Paying Gas/Electric Bills: No Difficulty Paying for Meds: No Currently Unemployed: No Education: Bachelor's Degree Difficulty w/ Childcare or Family Care: No Living arrangements: with family Additional living arrangements comments: Not listed Occupation/Education: occupation Additional occupation/education comments: [employer] - 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 Gender identity (if verbalized by the patient): Female Spiritual care concerns: No Agree to blood products: Yes Meds Home Medications and Allergies Home Medications ?Medication ?Instructions ?Recorded ?Confirmed ?Type cetirizine 10 mg tablet 10 mg PO DAILY 01/10/20 01/31/25 History bupropion HCl 150 mg 24 hr tablet, 150 mg PO QAM 07/13/22 01/31/25 History extended release rivaroxaban 2.5 mg tablet (Xarelto) 2.5 mg PO BID 07/13/22 01/31/25 History atorvastatin 40 mg tablet (Lipitor) 40 mg PO DAILY 06/21/24 01/31/25 History finasteride 5 mg tablet 5 mg PO DAILY 06/21/24 01/31/25 History gabapentin 600 mg tablet 600 mg PO BID 06/21/24 01/31/25 History metformin 500 mg tablet,extended 500 mg PO DAILY #90 tabs 07/12/24 01/31/25 Rx release 24 hr (Glucophage XR) hydrochlorothiazide 25 mg tablet 25 mg PO DAILY #90 tabs 08/30/24 01/31/25 Rx phentermine 37.5 mg tablet 37.5 mg PO DAILY #30 tabs 12/13/24 01/24/25 Rx omeprazole 40 mg capsule,delayed 40 mg PO DAILY #30 caps 01/01/25 01/31/25 Rx release Allergies Allergy/AdvReac Type Severity Reaction Status Date / Time No Known Allergies Allergy Verified 01/31/25 06:22 Vital Signs Vital Signs - 24 hr 01/31/25 06:24 Temperature 97.9 F Pulse Rate 69 Respiratory Rate 18 Blood Pressure 127/75 Exam Const: General: cooperative and healthy appearing Resp: Effort & Inspection: normal respiratory effort and able to speak in complete sentences Auscultation: clear to auscultation bilaterally Cardio: Rate: regular rate Rhythm: regular rhythm GI: Inspection: normal to inspection GI Palp: No No hepatosplenomegaly present Auscultation: normal bowel sounds Rectal Exam: deferred Skin: General skin exam: normal color Psych: Appearance: grossly normal Mental Status: mental status grossly normal Assessment and Plan Assessment and plan (1) Epigastric pain: Code(s): R10.13 - Epigastric pain Status: Acute Assessment and Plan: The patient is deemed a good candidate for the procedure. Consent signed. Will proceed.
--- NOTE | 2025-01-31 07:38 | S_PTH ---
PATIENT: Missy Briseno LOC: [facility] Ellis#:[id number] AGE/SX: 59/F ROOM: RE01/31/[address]: Avery Hernandez MD : 1965 BED: DIS: 01/31/2025 SPEC #: [id number] RECD: 01/31/25 10:00 STATUS: MICHAEL NIXON #: [id number] MARILUZ: 01/31/25 07:[address]: Avery Hernandez DEPT: [facility] Surgical RECD BY: Rufina Soria ENTERED: 01/31/25 10:00 SP TYPE: Surgical OTHR DR: Makeda Grant APRN Tissues: A - Gastric Biopsy B - Gastric Biopsy Procedures: Hematoxylin and Eosin Stain Gross and Microscopic Level 4
[2025-01-31 07:44] VITALS: BP 125/64; PULSE 69; RESP 18; O2SAT 99
[2025-01-31 07:54] VITALS: BP 124/79; PULSE 69; RESP 14; O2SAT 97
[2025-01-31 08:04] VITALS: BP 124/62; PULSE 61; RESP 14; O2SAT 99
== END 2025-01-31 08:08 | disposition home or self-care (01) ==
PROVIDERS: PCP Nurse Practitioner Adult Health; Referring Provider Nurse Practitioner Adult Health; Visit Provider Internal Medicine Gastroenterology
PROC: 0DJ08ZZ Inspection of Upper Intestinal Tract, Via Natural or Artificial Opening Endoscopic (ICD-10-PCS; CPT 43239; principal; 2025-01-31 07:30)
DX: R10.13 Epigastric pain (principal); Z87.891 Personal history of nicotine dependence; E66.9 Obesity, unspecified; Z68.35 Body mass index [BMI] 35.0-35.9, adult
CPT/HCPCS: 43239; 88305; J2003; J2704; J7120

== ENCOUNTER 2025-02-24 10:06 | Outpatient (CLI) | payer OTHER, SELFPAY ==
--- OUTSIDE RECORDS SUMMARY | 2024-02-02 03:30 | XMS_ITS ---
Author Organization [facility] Address [address] [facility] [address] [place] [address] Care Team Providers Care Finish Off Operator Name Role Phone Unique Jacobson Primary Care Provider Jensen De Leon Unavailable [phone] REASON FOR VISIT Lumbar Encounters Encounter Location Date Provider Diagnosis [facility] [facility] [address] [place] [address] 02/02/2024 Jensen Padron Plan Of Treatment No Information
--- OUTSIDE RECORDS SUMMARY | 2024-03-22 04:30 | XMS_ITS ---
Author Organization [facility] Address [address] [facility] [address] [place] [address] Care Team Providers Care Address Change Clerk Name Role Phone Unique Jacobson Primary Care Provider Jensen De Leon Unavailable [phone] REASON FOR VISIT Lumbar Encounters Encounter Location Date Provider Diagnosis [facility] [facility] [address] [place] [address] 03/22/2024 Jensen Padron Plan Of Treatment No Information
--- NOTE | ~2025-02-24 | MR_ITS ---
EXAMINATION: MR abdomen wo/w con DATE: 02/24/2025 11:18 INDICATION: Epigastric abdominal pain. TECHNIQUE: Magnetic resonance imaging (MRI) of the abdomen was performed without and with 20 mL MultiHance intravenous contrast. COMPARISON: Abdomen MRI 10/02/2020, CT abdomen and pelvis 01/12/2025 FINDINGS: There is diffuse hepatic steatosis. The gallbladder, spleen, pancreas, adrenal glands, and right kidney are normal. There is a 4 mm cyst. Left kidney. There is a 2.2 cm hemorrhagic cyst in left kidney. There are no dilated loops of bowel. IMPRESSION: 1. Diffuse hepatic steatosis. Reviewed, dictated and finalized at location E. TECHNICIAN
--- OUTSIDE RECORDS SUMMARY | 2025-02-24 10:11 | XMS_ITS | Clinical Summary ---
Author Organization [facility] Address [address] [place] [address] Care Team Providers Care Airport Traffic Controller Name Role Phone Arpita Watters MD Primary Care Provider [phone] Allergies No known active allergies Medications cetirizine [...] Comments Blood Pressure 140/60 02/17/2023 3:54 PM CUSTOMER RELATIONS ASSISTANT Pulse 85 02/17/2023 3:54 PM CUSTOMER RELATIONS ASSISTANT Temperature - - Respiratory Rate 17 04/28/2022 6:30 PM CUSTOMER RELATIONS ASSISTANT Oxygen Saturation 95% 04/28/2022 6:30 PM CUSTOMER RELATIONS ASSISTANT Inhaled Oxygen Concentration - - Weight 98.8 kg (217 lb 12.8 oz) 02/17/2023 3:54 PM CUSTOMER RELATIONS ASSISTANT Height 162.6 cm (5' 4) 02/17/2023 3:54 PM CUSTOMER RELATIONS ASSISTANT Body Mass Index 37.39 02/17/2023 3:54 PM CUSTOMER RELATIONS ASSISTANT Plan of Treatment Health Maintenance Due Date [...] to complete this topic Insurance Care Teams Airport Traffic Controller Relationship Specialty Start Date End Date Arpita Watters MD [address] [place] [address] [place] [phone] PCP - General FAMILY PRACTICE 08/20/20
--- OUTSIDE RECORDS SUMMARY | 2025-02-24 10:11 | XMS_ITS | Encounter Summary ---
Author Organization [facility] Address 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 Gender Identity Not on file Sexual Orientation Not on file documented as of this encounter Plan of Treatment Upcoming Encounters Date Type Department Care Team (Late st Contact Info) Description 10/05/2025 9:15 AM CDT Appointment [facility] [place] [address] [facility] [address] [place] [address] [place] [address] [facility] [address] [place] [address] 10/05/2025 10:15 AM CDT Appointment [facility] [place] [address] [facility] [address] [place] [address] [place] [address] [facility] [address] [place] [address] 10/05/2025 11:30 AM CDT Office Visit [facility] Heart and Vascular Surgery [address] [address] [facility] 101 [address] [address] [facility] [address] [place] [address] [place] [address] [address] [facility] [address] [place] [address] documented as of this encounter Visit Diagnoses Diagnosis Carpal tunnel syndrome- Primary documented in this encounter Care Teams Mud Worker Relationship Specialty Start Date End Date Arpita Watters MD [address] [place] [address] [place] [phone] PCP - General Family Practice 06/07/23 documented as of this encounter
--- OUTSIDE RECORDS SUMMARY | 2025-02-24 10:11 | XMS_ITS | Encounter Summary ---
Author Organization [facility] Address [address] [place] [address] Care Team Providers Care Patient Services Specialist Name Role Phone Arpita Watters MD Primary Care Provider [phone] Encounter Details Date Type Department Care Team (Late st Contact Info) Description 07/02/2020 Abstract [facility] [address] Yolanda Green MA Social History Tobacco Use [...] on filedocumented in this encounter Care Teams Patient Services Specialist Relationship Specialty Start Date End Date Arpita Watters MD [address] [place] [address] [place] [phone] PCP - General FAMILY PRACTICE 08/20/20 documented as of this encounter
--- OUTSIDE RECORDS SUMMARY | 2025-02-24 10:11 | XMS_ITS | Clinical Summary ---
Author Organization [facility] [address] [facility] Address [address] [place] [address] Care Team Providers Care Deckhand Oyster Dredge Name Role Phone Arpita Watters MD Primary [...] Encounters Date Type Department Care Team Description 02/20/2025 External Device Data STL ABSTRACTION Provider, Abstract 02/20/2025 External Device Data STL ABSTRACTION Provider, Abstract 02/13/2025 External Device Data STL ABSTRACTION Provider, Abstract 01/25/2025 Abstract [facility] Heart and Vascular Surgery [address] [facility] 101 [address] [facility] [address] [place] [address] Davida Lentz MD 01/23/2025 External Device Data STL ABSTRACTION Provider, Abstract 01/19/2025 Abstract [facility] Heart and Vascular Surgery [address] [place] [address] [facility] [address] [place] [address] Davida Lentz MD 01/03/2025 External Device Data STL ABSTRACTION Provider, Abstract 01/03/2025 External Device Data STL ABSTRACTION Provider, Abstract from Last 3 Months Family History Medical History Relation Name Comments Heart Disease Father Hypertension Father Diabetes Mother Heart Disease Mother Blood Disorder Sister Relation Name Status Comments Father Mother Sister Social History Tobacco Use Types Packs/Day Years Used Date Smoking Tobacco: Former Cigarettes 0 Q uit: 05/07/2022 Smokeless Tobacco: Never Tobacco Cessation:Counseling Given: Not Answered Alcohol Use Standard Drinks/Week Comments Never 0 (1 standard drink = 0.6 oz pur e alcohol) Comments Unknown Sex and Gender Information Value Date Recorded Sex Assigned at Not on file Legal 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 Gender Identity Not on file Sexual Orientation [...] CDT Appointment [facility] [address] [facility] [address] [place] [address] [place] [address] [facility] [address] [place] [address] 10/05/2025 10:15 AM CDT Appointment [facility] [place] [address] [facility] [address] [place] [address] [place] [address] [facility] [address] [place] [address] 10/05/2025 11:30 AM CDT Office Visit [facility] [address] [facility] [address] [facility] [address] [place] [address] [place] [address] [address] [facility] [address] [place] [address] Health Maintenance Due Date Last Done Comments [...] 11/27/2030 11/27/2020 Colorectal Cancer Screening 11/27/2030 Insurance [employer] [facility] [id number] Care Teams Deckhand Oyster Dredge Relationship Specialty Start Date End Date Arpita Watters MD [address] [place] [address] PCP - General Family Practice 06/07/23
--- OUTSIDE RECORDS SUMMARY | 2025-02-24 10:11 | XMS_ITS | Encounter Summary ---
Author Organization [facility] Address [address] [place] [address] Care Team Providers Care Electrical Sign Wirer Name Role Phone Arpita Watters MD Primary Care Provider [phone] Encounter Details Date Type Department Care Team (Late st Contact Info) Description 11/24/2021 Prep for Procedure [facility], [facility] [address] [place], [place] [address] Basilio Villagran MD [facility]. [facility] [address] [place], [place] [phone] Social History Tobacco Use Types Packs/Day Years [...] on filedocumented in this encounter Care Teams Electrical Sign Wirer Relationship Specialty Start Date End Date Arpita Watters MD [address] [place] [address] [place] [address] PCP - General FAMILY PRACTICE 08/20/20 documented as of this encounter
--- OUTSIDE RECORDS SUMMARY | 2025-02-24 10:12 | XMS_ITS | Encounter Summary ---
Author Organization [facility] Address [address] [place] [address] Care Team Providers Care Director Of Player Personnel Name Role Phone Arpita Watters MD Primary Care Provider [phone] Encounter Details Date Type Department Care Team (Late st Contact Info) Description 08/02/2020 Prep for Procedure [facility], [facility] [address] [place], [place] [address] Basilio Villagran MD [facility]. [facility] [address] [place], [place] [id number] Social History Tobacco Use Types Packs/Day Years [...] on filedocumented in this encounter Care Teams Director Of Player Personnel Relationship Specialty Start Date End Date Arpita Watters MD [address] [place] [address] PCP - General FAMILY PRACTICE 08/20/20 documented as of this encounter
--- OUTSIDE RECORDS SUMMARY | 2025-02-24 10:12 | XMS_ITS | Clinical Summary ---
Author Organization [facility] Address [address] [place] [address] Care Team Providers Care Cinder Pit Crane Operator Name Role Phone Makeda Grant NP Primary Care Provider [phone] Allergies No known active allergies Medications gabapentin [...] Most Recently Relevant to Health Maintenance Insurance [facility] CHO[facility] PLUS [facility] PLUS [place] [id number] Care Teams Cinder Pit Crane Operator Relationship Specialty Start Date End Date Makeda Grant NP [address] [place] [address] PCP - General Nurse Practitioner 08/17/24
--- OUTSIDE RECORDS SUMMARY | 2025-02-24 10:12 | XMS_ITS | Clinical Summary ---
Author Organization [employer] [employer] Address [address] [place] [address] Care Team Providers Care Field Operations Coordinator Name Role Phone No, Pcp ADJUSTER AND INSPECTOR Primary Care Provider Unavailabl e Social History Tobacco Use Types Packs/Day Years Used Date Smoking Tobacco: Never Assessed Comments Unknown Sex and Gender Information Value Date Recorded Sex Assigned at Not on file Legal Sex Female 1:51 PM EDT Gender Identity Not on file Sexual Orientation Not on file Plan of Treatment Not on file Medical Devices Not on file Care Teams Field Operations Coordinator Relationship Specialty Start Date End Date No, Pcp, ADJUSTER AND INSPECTOR N/A Do not use PCP - General Family Medicine 09/23/19
--- OUTSIDE RECORDS SUMMARY | 2025-02-24 10:12 | XMS_ITS | Data Portability ---
Author Organization [facility] [place] Address [address] [place] [address] Care Team Providers Care Seat Mender Name Role Phone KD CORONA Primary Care Provider Assessment Encounter Date Assessment Date Assessment LastModified by Organization Details LastModified Time 08/16/2024 08/16/2024 Annual gynecological exam performed. Patient will come back in a year unless there are new symptoms. [email or web address] Not available 08/16/2024 11:47:46 Plan of Treatment Reminders Order Date Submit Date Provider Last Modified By Organization Details Last Modified Time Details Appointments None recorded. Lab pap, IG + HR HPV - HPV regardless but if HPV is positive need subtyping 16,18/45 2024 025 [facility] (Lab), [address] [facility], [place], [address], 5 18:32:00 Referral None recorded. Procedures None recorded. Surgeries None recorded. Imaging MAMMO, screening, digital, bilateral 2024 025 dary Kelley [facility] (Radiology), [address] [facility] , [place], [address], 5 10:56:06 Medication Orders None recorded. Patient [...] Provi lynne: Dermo dy, Cat , ANP, EXERCISE PHYSIOLOGIST Colle cted: 08/16 1335 Order ing Locat ion: [place] [facility] Recei wallace: 08/17 0132 First Scree n: Paola Griffin , CT Speci men: Marjorie leray Pap - Image d, Cervi x STATE [...] as clini katharina rodriguez nted. Not Available [facility] (Lab) [address], [place], [address], 08/17/2024 18:32:00 Result Notes None recorded. Procedures Surgical History Date Name Laterality Status Provider Name and Address Organization Details Recorded Time 2 completed [facility] 08/16/2024 11:48:01 2 Date of Last Mammogram completed [facility] 08/16/2024 11:48:01 Imaging Results None recorded. [...] Updated DateTime 08/16/2024 162.56 cm 37.2 kg/m2 75734.11 g 120/79 mm[Hg] Iveth Thornton [facility] 08/16/2024 11:53:51 Social History Question Answer Notes LastModified by Organizat ion Details LastModified Time Tobacco Smoking Status Never Smoker Iveth Thornton [facility] 08/16/2024 11:56:26 Do You Have An Advance Directive? Yes [email or web address] Information n ot available 08/16/2024 How Many Years Have You Consumed Alcohol? 30 Information not available 08/16/2024 Are You Blind Or Do You Have Difficulty Seeing? No [email or web address] Information n ot available 08/16/2024 What Is Your Level Of Caffeine Consumption? Occasional [email or web address] Information not available 08/16/2024 In The 14 Days Before Symptom Onset, Have You Had Close Contact With A Laboratory-confirm ed COVID-19 While That Case Was Ill? No [email or web address] Information n ot available 08/16/2024 In The 14 Days Before Symptom Onset, Have You Had Close Contact With A Person Who Is Under Investigation For COVID-19 While That Person Was Ill? No [email or web address] Information not available 08/16/2024 Have You Been To An Area Known To Be High Risk For COVID-19? No [email or web address] Information not available 08/16/2024 Are You Deaf Or Do You Have Serious Difficulty Hearing? No [email or web address] Information not available 08/16/2024 What Type Of Diet Are You Following? REGULAR [email or web address] Information n ot available 08/16/2024 What Is The Highest Grade Or Level Of School You Have Completed Or The Highest Degree You Have Received? [id number] [email or web address] Information not available 08/16/2024 Are There Any Guns Present In Your Home? Yes [email or web address] Information not available 08/16/2024 Do You Use Protection During Sex? No Information not available 08/16/2024 Do You Use Your Seat Belt Or Car Seat Routinely? Yes Information not available 08/16/2024 Are You Sexually Active? No Information not available 08/16/2024 Do You Have Smoke And Carbon Monoxide Detectors In Your Home? Yes [email or web address] Information not available 08/16/2024 How Much Tobacco Do You Smoke? No [email or web address] Information not available 08/16/2024 Do You Use Sunscreen Routinely? No Information not available 08/16/2024 Have You Used IV Drugs? No [email or web address] Information not available 08/16/2024 Do You Have Difficulty Walking Or Climbing Stairs? No [email or web address] Information not available 08/16/2024 Sex: Unknown Functional Status Question Answer Note LastModified by Organizat ion Details LastModified Time Do you use any illicit or recreational drugs? No [email or web address] Information not available 08/16/2024 What is your level of alcohol consumption? Occasional [email or web address] Information not available 08/16/2024 Are you currently employed? Yes [email or web address] Information not available 08/16/2024 Are you able to walk independently without assistance or assistive devices? YESWOREST Information not available 08/16/2024 Are you able to care for yourself independently? 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 No [email or web address] Information not available 08/16/2024 What is your exercise level? None [email or web address] Information not available 08/16/2024 Mental Status Question Answer Note LastModified by Organization D etails LastModified Time Do you feel stressed (tense, restless, nervous, or anxious, or unable to sleep at night)? [id number] [email or web address] Information not available 08/16/2024 Family History Relationship Description Onset Age of this Age Resolved Age Notes LastModified by Organization Details LastModified Time Mother Heart disease [email or web address] Not available 2024 11:48:01 Mother Diabetes mellitus [email or web address] Not available 2024 11:56:09 Sister Heart disease Not available 2024 11:48:01 Father Heart disease [email or web address] Not available 2024 11:48:01 Notes:oat cancer- father Medical History Condition Response Allergies (Food, seasonal, environmental ) N Other N Drug/Latex Allergies/Reactions N Blood Transfusion N Breast Cancer N Dermatologic Disorders N Lung Disease N Defects or Inherited Disease N Breast Problem N Gestational Diabetes N Hematologic disorders N Anesthesia Complications N History of STI N Deep Vein Thrombosis N Polycystic ovary syndrome N Anxiety Disorder N Autoimmune disease N Arthritis N Polyps N Infertility N Acid Reflux (GERD) N History of abnormal pap N Cancer N Varicosities N Stroke N Neurologic/Epilepsy N Endometriosis N High Cholesterol N Fibromyalgia N Headaches N Kidney Disease N Heart Problems N Thyroid Problems N Kidney or Bladder Problems N GI Problems N Eating Disorder [...] ICD10 Code Diagnosis IMO Codes Diagnosis Note [id number] Dorian Adames MD [place] [address] [address] 08/16/2024 11:46:26 08/16/2024 12:41:54 Well woman health examination [id number] Z01.419 [id number] Annual gynecologi wyatt exam performed. Patient will [...] STI testing - declined Screening mammography 24 110448 Z12.31 [id number] Health Concerns Section Related Observation LastModified by Organization Detai ls LastModified Time None Recorded Concern Status LastModified by Organization Details LastModified Time None Recorded Advance Directives Directive Y: Payers Insurance Date Sequence Insurance Name Policy Number Policy Chiang Covered Member ID Chiang Member ID Guarantor Name 08/15/2024 1 [facility] [id number] Missy Briseno [id number] Missy Briseno Notes Date Note Type Note Provider Name and Address Organization Details Recorded Time 5 text/html Annual Back End Engineer Post-MenopausalReported by PatientGenitourinary symptomsFor menopausal symptoms, patient [...] exam. Patient denies concerns today. Iveth Thornton [facility] 08/16/2024 12:40:22 OBGyn Episode No OBEpisode recorded.
== END 2025-02-24 10:07 | disposition home or self-care (01) ==
LOC: CHSIMG 10:09
PROVIDERS: PCP Nurse Practitioner Adult Health; Visit Provider Nurse Practitioner Adult Health
DX: R10.13 Epigastric pain (principal); K76.0 Fatty (change of) liver, not elsewhere classified
CPT/HCPCS: 74183; A9577